=== PATIENT | female | born 1955 | race Caucasian/White ===

== ENCOUNTER 2016-10-28 19:56 | Emergency (ER) | payer MEDICAID ==
--- NOTE | 2016-10-28 20:20 | EDPHY ---
H & P Time Seen by Provider: 10/28/16 20:19 HPI/ROS: Chief complaint. Left-sided numbness HPI. 60-year-old female presents with 3 week history of left arm, left leg, left face numbness. Chronic back pain. Recent the the MRI of her neck that apparently showed DJD in surgery was not recommended. She also feels that she has weakness. She has vertigo and tinnitus. No chest discomfort, shortness of breath, abdominal pain ROS Constitutional. no fever/chills, no weakness Eyes. no problems with vision ENT. no sore throat, no nasal drainage Cardiovascular. no chest pain Respiratory. no shortness of breath, no cough Abdominal. no abdominal pain, no nausea/vomiting, no diarrhea . no problems urinating MS. Chronic back pain Skin. no rash Lymph. no swollen glands Neuro. Numbness to left side Past Medical/Surgical History: Past medical history significant thyroid disease, degenerative disc disease, vertigo, essential tremor, hypertension, depression Social History: Single, daily smoker, no alcohol Smoking Status: Light smoker Physical Exam: General Appearance: Alert well-developed female mild distress vital signs are stable Eyes: Pupils equal and round no pallor or injection. ENT, Mouth: Mucous membranes are moist. Respiratory: There are no retractions, lungs are clear to auscultation. Cardiovascular: Regular rate and rhythm. Gastrointestinal: Abdomen is soft and nontender, no masses, bowel sounds normal. Neurological: Awake and alert, sensory and motor exams grossly normal. Speech is normal. Cranial nerves normal. There is no pronator drift. Elibgw-vr-[id number] is normal ofov-ww-[id number] is normal. Great toe strength is normal. However patient feels altered sensation to the left side and left face Skin: Warm and dry, no rashes. Musculoskeletal: Neck is supple nontender. Extremities symmetrical, full range of motion. Psychiatric: Patient is oriented X 3, there is no agitation. Constitutional: Initial Vital Signs Temperature (C) 36.4 C 10/28/16 19:58 Heart Rate 102 H 10/28/16 19:58 Respiratory Rate 16 10/28/16 19:58 Blood Pressure 130/76 H 10/28/16 19:58 O2 Sat (%) 96 10/28/16 19:58 O2 Delivery Mode Room Air Allergies/Adverse Reactions: Sulfa (Sulfonamide Antibiotics) Allergy (Intermediate, Verified 05/28/16 19:55) Hives Home Medications: Medication Instructions Recorded Propranolol HCl 10/08/14 CYCLOBENZAPRINE HCL [Flexeril] 5 mg PO TID 05/28/16 Valium 10 MG (*) 05/28/16 Medical Decision Making - Diagnostics Imaging: MRI of the head without and with contrast reviewed by me and discussed with Dr. Brady is felt to be normal Procedures: IV normal saline ED Course/Re-evaluation: Re-evaluation 10:45 p.m.--patient is stable. The patient and I discussed lab and imaging results. We discussed treatment plan including criteria for return importance of follow-up further evaluation. She expresses understanding and agreement Differential Diagnosis: No explanation for the patient's left-sided paresthesias for 3 weeks. I considered CVA, brain tumor. It involves her face so I do not think this is explained by a cervical radiculopathy - Data Points Laboratory Results: Laboratory Results 10/28/16 20:55 10/28/16 20:55 10/28/16 10/28/16 20:55 20:55 WBC 9.76 10^3/uL H 10^3/uL (3.80-9.50) RBC 4.50 10^6/uL 10^6/uL (4.18-5.33) Hgb 14.2 g/dL g/dL (12.6-16.3) Hct 40.5 % % (38.0-47.0) MCV 90.0 fL fL (81.5-99.8) MCH 31.6 pg pg (27.9-34.1) MCHC 35.1 g/dL g/dL (32.4-36.7) RDW 11.7 % % (11.5-15.2) Plt Count 285 10^3/uL 10^3/uL (150-400) MPV 10.4 fL fL (8.7-11.7) Neut % (Auto) 51.5 % % (39.3-74.2) Lymph % (Auto) 38.1 % % (15.0-45.0) [place] % (Auto) 6.4 % % (4.5-13.0) Eos % (Auto) 2.9 % % (0.6-7.6) Baso % (Auto) 0.8 % % (0.3-1.7) Nucleat RBC Rel Count 0.0 % % (0.0-0.2) Absolute Neuts (auto) 5.03 10^3/uL 10^3/uL (1.70-6.50) Absolute Lymphs (auto) 3.72 10^3/uL H 10^3/uL (1.00-3.00) Absolute Monos (auto) 0.62 10^3/uL 10^3/uL (0.30-0.80) Absolute Eos (auto) 0.28 10^3/uL 10^3/uL (0.03-0.40) Absolute Basos (auto) 0.08 10^3/uL 10^3/uL (0.02-0.10) Absolute Nucleated RBC 0.00 10^3/uL 10^3/uL (0-0.01) Immature Gran % 0.3 % % (0.0-1.1) Immature Gran # 0.03 10^3/uL 10^3/uL (0.00-0.10) Sodium 138 mEq/L mEq/L (134-144) Potassium 3.8 mEq/L mEq/L (3.5-5.2) Chloride 104 mEq/L mEq/L (97-110) Carbon Dioxide 22 mEq/l mEq/l (22-31) Anion Gap 12 mEq/L mEq/L (8-16) BUN 29 mg/dL H mg/dL (7-23) Creatinine 0.6 mg/dL mg/dL (0.6-1.0) Estimated GFR > 60 Glucose 91 mg/dL mg/dL (70-100) Calcium 10.0 mg/dL mg/dL (8.5-10.4) Troponin I < 0.012 ng/mL ng/mL (0-0.034) Medications Given: Discontinued Medications Sodium Chloride (Ns) 1,000 mls @ 0 mls/hr IV ONCE ONE PRN Reason: Wide Open Stop: 10/28/16 20:44 Last Admin: 10/28/16 20:55 Dose: 1,000 mls Departure - Departure Disposition: Home, Routine, Self-Care Clinical Impression: Paresthesia Condition: Good Instructions: Paresthesia (ED) Additional Instructions: Return for worsening symptoms especially arm or leg weakness. Call Dr. Faith office tomorrow to arrange follow-up and further evaluation by Neurology Referrals: NONE *PRIMARY CARE P,. [Primary Care Provider] - As per Instructions Alli Landrum, [Medical Doctor] - 2-3 days, call for appt.
[2016-10-28] MEDS ORDERED: NS 1,000 ML IV ONE (20:43)
[2016-10-28 21:01] LABS: % IMMATURE GRANULYOCYTES 0.3 % (0.0-1.1); ABSOLUTE IMMATURE GRANULOCYTES 0.03 10^3/uL (0.00-0.10); ADD DIFF? NO; ADD MORPH? NO; ADD SCAN? NO; ATYPICAL LYMPHOCYTE FLAG 0 (0-99); FRAGMENT RBC FLAG 0 (0-99); HEMATOCRIT 40.5 % (38.0-47.0); HEMOGLOBIN 14.2 g/dL (12.6-16.3); LEFT SHIFT FLG 0 (0-99); LIPEMIA HEMOLYSIS FLAG 90 (0-99); MEAN CELL HEMOGLOBIN 31.6 pg (27.9-34.1); MEAN CELL HEMOGLOBIN CONCENTR. 35.1 g/dL (32.4-36.7); MEAN PLATELET VOLUME 10.4 fL (8.7-11.7); PLATELET CLUMPS FLAG 10 (0-99); PLATELET COUNT 285 10^3/uL (150-400); RED CELL DISTRIBUTION WIDTH 11.7 % (11.5-15.2)
--- NOTE | 2016-10-28 21:11 | CPEKG ---
Heart Rate: 79 RR Interval: 759 P-R Interval: 164 QRSD Interval: 88 QT Interval: 380 QTC Interval: 436 P Dixon: 48 QRS Dixon: 29 T Wave Dixon: 34 EKG Severity - NORMAL ECG - EKG Impression: SINUS RHYTHM Electronically Signed By: Saad Santacruz 28-Oct-2016 21:44:06
[2016-10-28 21:19] LABS: ANION GAP 12 mEq/L (8-16); CARBON DIOXIDE 22 mEq/l (22-31); CHLORIDE 104 mEq/L (97-110); CREATININE 0.6 mg/dL (0.6-1.0); GLOMERULAR FILTRATION RATE > 60; GLUCOSE 91 mg/dL (70-100); POTASSIUM 3.8 mEq/L (3.5-5.2); SODIUM 138 mEq/L (134-144)
[2016-10-28] MEDS ORDERED: GADOBUTROL 10 ML VIAL IVP ONE (21:22)
[2016-10-28 21:30] LABS: TROPONIN I < 0.012 ng/mL (0-0.034)
[2016-10-28 23:12] VITALS: BP 128/73; PULSE 85; RESP 16; TEMP 97.7; O2SAT 98
== END 2016-10-28 23:12 | disposition home or self-care (01) ==
DX: R20.2 Paresthesia of skin (principal); I10 Essential (primary) hypertension; F17.200 Nicotine dependence, unspecified, uncomplicated
CPT/HCPCS: A9585

== ENCOUNTER 2016-11-28 14:24 | Emergency (ER) | payer MEDICAID ==
[2016-11-28 14:29] VITALS: BP 102/65; PULSE 82; RESP 18; TEMP 97.5; O2SAT 95
--- NOTE | 2016-11-28 16:06 | EDPHY ---
H & P Stated Complaint: Mid abd pain w/cramping nausea today;drinking pepsi at triage Time Seen by Provider: 11/28/16 15:53 HPI/ROS: CHIEF COMPLAINT: Fatigue HISTORY OF PRESENT ILLNESS: Patient is a 60-year-old homeless female who comes to the emergency department complaining of fatigue and complete thoracic pain from her lower pelvis up to her neck and ears. She states that she has been walking and traveling too much and is tired. She has a history of chronic back pain. She states that this is bothering her. She has not had a fever cough. No vomiting or diarrhea. REVIEW OF SYSTEMS: Constitutional: See HPI denies: chills, fever, recent illness, recent injury EENTM: denies: blurred vision, double vision, nose congestion Respiratory: denies: cough, shortness of breath Cardiac: denies: chest pain, irregular heart rate, lightheadedness, palpitations Gastrointestinal/Abdominal: denies: abdominal pain, diarrhea, nausea, vomiting, blood streaked stools Genitourinary: denies: dysuria, frequency, hematuria, pain Musculoskeletal: denies: joint pain, muscle pain Skin: denies: lesions, rash, jaundice, bruising Neurological: denies: headache, numbness, paresthesia, tingling, dizziness, weakness Hematologic/Lymphatic: denies: blood clots, easy bleeding, easy bruising Immunologic/allergic: denies: HIV/AIDS, transplant EXAM: GENERAL: Well-appearing, well-nourished and in no acute distress. HEAD: Atraumatic, normocephalic. EYES: Pupils equal round and reactive to light, extraocular movements intact, sclera anicteric, conjunctiva are normal. ENT: TMs normal, nares patent, oropharynx clear without exudates. Moist mucous membranes. NECK: Normal range of motion, supple without lymphadenopathy or JVD. LUNGS: Breath sounds clear to auscultation bilaterally and equal. No wheezes rales or rhonchi. HEART: Regular rate and rhythm without murmurs, rubs or gallops. ABDOMEN: Soft, nontender, normoactive bowel sounds. No guarding, no rebound. No masses appreciated. BACK: No CVA tenderness, no spinal tenderness, step-offs or deformities EXTREMITIES: Normal range of motion, no pitting or edema. No clubbing or cyanosis. NEUROLOGICAL: Cranial nerves II through XII grossly intact. Normal speech, normal gait. 5/5 strength, normal movement in all extremities, normal sensation PSYCH: Normal mood, normal affect. SKIN: Warm, dry, normal turgor, no visible rashes or lesions. Source: Patient Exam Limitations: No limitations - Personal History Current Tetanus Diphtheria and Acellular Pertussis (TDAP): Yes Tetanus Vaccine Date: 2009 - Medical/Surgical History Hx Asthma: No Hx Chronic Respiratory Disease: No Hx Diabetes: No Hx Cardiac Disease: Yes Hx Renal Disease: No Hx Cirrhosis: No Hx Alcoholism: No Hx HIV/AIDS: No Hx Splenectomy or Spleen Trauma: No Other PMH: Thyroid disease, degenative disc disease, vertigo, , tonsillectomy, essential tremor, TMJ, Hypertension, depression - Family History Significant Family History: No pertinent family hx - Social History Smoking Status: Current every day smoker Alcohol Use: None Drug Use: None Constitutional: Initial Vital Signs Temperature (C) 36.4 C 11/28/16 14:25 Heart Rate 82 11/28/16 14:25 Respiratory Rate 18 11/28/16 14:25 Blood Pressure 102/65 11/28/16 14:25 O2 Sat (%) 95 11/28/16 14:25 O2 Delivery Mode Room Air Allergies/Adverse Reactions: Sulfa (Sulfonamide Antibiotics) Allergy (Intermediate, Verified 05/28/16 19:55) Hives Home Medications: Medication Instructions Recorded Propranolol HCl 10/08/14 CYCLOBENZAPRINE HCL [Flexeril] 5 mg PO TID 05/28/16 Valium 10 MG (*) 05/28/16 Medical Decision Making ED Course/Re-evaluation: Patient's abdominal exam and physical exam in general are completely benign. She has a tough time specifying to me exactly why she is here and what she was hoping we could evaluate. Eventually she told me that if we would give her 7 up that she thinks she would feel much better and would want to leave. She denies chest pain or shortness of breath. 4:30 p.m. the patient was able to successfully drink a can of 7 up. She is now eager to leave. She declines further workup or testing. Differential Diagnosis: Partial list of the Differential diagnosis considered include but were not limited to; fatigue, malingering, anxiety and although unlikely based on the history and physical exam, I also considered gastroenteritis, appendicitis, diverticulitis, acute coronary disease, dissection. I discussed these differential diagnoses and the plan with the patient as well as the usual and expected course. The patient understands that the diagnosis is provisional and that in medicine we are not always correct and that further workup is often warranted. Usual and customary warnings were given. All of the patient's questions were answered. The patient was instructed to return to the emergency department should the symptoms at all worsen or return, otherwise to followup with the physician as we discussed. Departure - Departure Disposition: Home, Routine, Self-Care Clinical Impression: Fatigue Qualifiers: Fatigue type: unspecified Qualified Code(s): R53.83 - Other fatigue Condition: Fair Instructions: Fatigue (ED) Referrals: NONE *PRIMARY CARE P,. [Primary Care Provider] - As per Instructions [facility],. [Clinic] - As per Instructions
--- NOTE | 2016-11-29 23:22 | EDPHY ---
H & P Time Seen by Provider: 11/28/16 15:53 HPI/ROS: This patient complains nausea associated with vertiginous symptoms that she describes as spinning sensation when she moves her head. She also reports some chronic neck pain and chronic back pain. She notes some occasional crepitance in her neck when she moves her head. Finally, she reports some lower belly discomfort of mild to moderate intensity. She admits associated constipation with no bowel movement over the past 4 5 days. She has chronic lumbar pain well with no recent changes. ROS: No fevers or chills. Reports mild fatigue but no other constitutional symptoms HEENT: No URI symptoms recently except for coryza that she attributes to seasonal allergies. Pulmonary: No shortness of breath. No cough. Cardiovascular: No chest pain. GI: No upper belly pain. No vomiting. : No urinary symptoms. Neuro: No focal numbness tingling weakness. No bowel or bladder incontinence. 10 point ROS is otherwise negative. Past Medical/Surgical History: Chronic low back pain with degenerative disc disease that she reports is cause of her disability. Social History: Patient is homeless Smoking Status: Current every day smoker Physical Exam: General Appearance: Alert, no distress. Eyes: Pupils equal and round no pallor or injection. ENT, Mouth: Mucous membranes moist. Ears: External canals and TMs are clear bilaterally. Nose: Clear discharge bilaterally. Atraumatic Respiratory: There are no retractions, lungs are clear to auscultation. Cardiovascular: Regular rate and rhythm. No murmur gallop rub. Gastrointestinal: Normoactive, soft, mild suprapubic tenderness with no guarding or rebound. No organomegaly. Back: No CVA tenderness. She has mild lumbar paraspinous tenderness bilaterally. Neurological: GCS 15. No focal sensory motor deficits except for slightly weak Achilles reflex on the left. Patient admits that she thinks this is likely chronic due to her longstanding back problems. With head movement she has mild increase in vertigo. Cerebellar exam is normal as judged by Rapid hand movements are symmetric bilaterally. No pronator drift. No lateral nystagmus Skin: Warm and dry, no rashes. Musculoskeletal: No midline tenderness. She has mild paraspinous tenderness in the neck bilaterally but has a supple neck. Extremities are symmetrical, full range of motion. Psychiatric: Mood and affect are normal DIFFERENTIAL DIAGNOSIS: After history and physical exam differential diagnosis was considered for constipation, UTI, chronic back pain, vertigo-benign positional Constitutional: Initial Vital Signs Temperature (C) 36.4 C 11/28/16 14:25 Heart Rate 82 11/28/16 14:25 Respiratory Rate 18 11/28/16 14:25 Blood Pressure 102/65 11/28/16 14:25 O2 Sat (%) 95 11/28/16 14:25 O2 Delivery Mode Room Air Allergies/Adverse Reactions: Sulfa (Sulfonamide Antibiotics) Allergy (Intermediate, Verified 05/28/16 19:55) Hives Home Medications: Medication Instructions Recorded Propranolol HCl 10/08/14 CYCLOBENZAPRINE HCL [Flexeril] 5 mg PO TID 05/28/16 Valium 10 MG (*) 05/28/16 Docusate Sodium [Colace 100 MG (*)] 100 mg PO BID PRN #20 cap 11/29/16 Meclizine HCl [Meclizine HCl 25 mg 25 mg PO TID PRN #20 tab 11/29/16 (RX,OTC)] MDM/Departure - [facility] ED Course/Re-evaluation: Urinalysis reveals no pyuria or bacteria. Discussion: Patient has findings consistent with a mild benign positional vertigo without evidence of central vertigo. I suspect that her lower belly discomfort attributable to constipation. I counseled regarding this. She has chronic neck and back pain with no recent changes. Evidence of cauda equina. Course: Meclizine with some improvement her vertigo. I counseled regarding stool softener for constipation. She has a benign exam in terms of not have an acute abdomen, no findings that would suggest a central vertigo or other concerning findings. - Depart Disposition: Home, Routine, Self-Care Clinical Impression: Fatigue Condition: Fair Instructions: Fatigue (ED), Benign Paroxysmal Positional Vertigo (ED) Additional Instructions: Diagnoses: 1. Benign positional vertigo 2. Constipation Plan: Drink plenty fluids Fleets enema Colace Meclizine for vertiginous symptoms Follow up with orthopedics for any ongoing back pains. Referrals: NONE *PRIMARY CARE P,. [Primary Care Provider] - As per Instructions [facility],. [Clinic] - As per Instructions
== END 2016-11-28 16:15 | disposition home or self-care (01) ==
DX: R53.83 Other fatigue (principal); I10 Essential (primary) hypertension; F17.200 Nicotine dependence, unspecified, uncomplicated

== ENCOUNTER 2016-11-29 20:35 | Emergency (ER) | payer MEDICAID ==
[2016-11-29 21:03] VITALS: RESP 16; TEMP 98.2
[2016-11-29] MEDS ORDERED: MECLIZINE HCL 25 MG TAB PO ONE (21:21)
[2016-11-29 21:30] LABS: COLOR YELLOW; LEUKOCYTE ESTERASE,URINE NEGATIVE (NEGATIVE); NITRITE,URINE NEGATIVE (NEGATIVE); PH,URINE 5.5 (5.0-7.5)
[2016-11-29 21:43] LABS: HYALINE CASTS OCCASIONAL /lpf (0-1); MUCUS 2+ /lpf (NONE-1+); RBC,URINE OCCASIONAL /hpf (0-3); WBC,URINE 0-1 /hpf (0-3)
--- NOTE | 2016-11-29 21:51 | EDPHY ---
H & P Time Seen by Provider: 11/29/16 21:11 HPI/ROS: My initial dictation this patient was evidently not saved. This patient presented with multiple vague complaints. The most prominent seem to be dizziness described over the previous 2 weeks. She describes the vertiginous symptoms as worsening with head movement. She also has some lower belly discomfort that comes in waves. She reports associated constipation with last bowel movement 2 days prior to arrival-firm stool. She notes no other exacerbating or alleviating factors. ROS: No high fevers or chills. No other constitutional symptoms. HEENT: No URI symptoms except for coryza that is mild. Pulmonary: No cough Cardiovascular: No heart palpitations lightheadedness GI: No vomiting. No dark tarry stools or bloody stools. : No urinary symptoms. Neuro: No focal numbness tingling weakness Musculoskeletal: She has chronic neck pain with no recent changes. 10 point ROS is otherwise negative Past Medical/Surgical History: Chronic neck pain Chronic back pain with degenerative disc disease Hypertension Smoking Status: Current every day smoker Physical Exam: General Appearance: Alert, no distress. Eyes: Pupils equal and round no pallor or injection. ENT, Mouth: Mucous membranes moist. Respiratory: There are no retractions, lungs are clear to auscultation. Cardiovascular: Regular rate and rhythm. Gastrointestinal: Normoactive, soft, mild suprapubic tenderness with no guarding or rebound. Neurological: GCS 15. She maintains normal cerebellar exam is evidenced by symmetric rapid hand movements bilaterally. She does have increased vertigo with head movement. She has no focal sensory or motor deficits I can appreciate except for slightly weak Achilles DTR on the left the patient thinks is chronic in attributable to her low back pain/discogenic disease. Skin: Warm and dry, no rashes. Musculoskeletal: Neck is supple Extremities are symmetrical, full range of motion. Psychiatric: Mood and affect normal DIFFERENTIAL DIAGNOSIS: After history and physical exam differential diagnosis was considered for constipation, peripheral vertigo, UTI, Constitutional: Initial Vital Signs Temperature (C) 36.8 C 11/29/16 21:01 Heart Rate 80 11/29/16 21:01 Respiratory Rate 16 11/29/16 21:01 Blood Pressure 115/78 11/29/16 21:01 O2 Sat (%) 97 11/29/16 21:01 O2 Delivery Mode Room Air Allergies/Adverse Reactions: Sulfa (Sulfonamide Antibiotics) Allergy (Intermediate, Verified 11/30/16 05:47) Hives Home Medications: Medication Instructions Recorded Propranolol HCl 10/08/14 CYCLOBENZAPRINE HCL [Flexeril] 5 mg PO TID 05/28/16 Valium 10 MG (*) 05/28/16 Docusate Sodium [Colace 100 MG (*)] 100 mg PO BID PRN #20 cap 11/29/16 Meclizine HCl [Meclizine HCl 25 mg 25 mg PO TID PRN #20 tab 11/29/16 (RX,OTC)] morphINE SR 15 mg BID 12/01/16 MDM/Departure - MDM Diagnostics: Urinalysis rules out UTI with only minimal microscopic hematuria otherwise negative. Medications Given: Discontinued Medications Meclizine HCl (Meclizine Hcl) 25 mg PO EDNOW ONE Stop: 11/29/16 21:22 Last Admin: 11/29/16 21:31 Dose: 25 mg ED Course/Re-evaluation: Counseled this patient regarding benign positional vertigo, constipation and chronic neck/back pain. Clinically, she does not have a surgical abdomen or concerning findings. She has normal vital signs and appears well at this time. No evidence of central vertigo. - Depart Disposition: Home, Routine, Self-Care Clinical Impression: Benign positional vertigo Qualifiers: Laterality: unspecified laterality Qualified Code(s): H81.10 - Benign paroxysmal vertigo, unspecified ear Constipation Qualifiers: Constipation type: unspecified constipation type Qualified Code(s): K59.00 - Constipation, unspecified Chronic low back pain Qualifiers: Back pain laterality: unspecified Sciatica presence: without sciatica Qualified Code(s): M54.5 - Low back pain; G89.29 - Other chronic pain Condition: Good Instructions: Benign Paroxysmal Positional Vertigo (ED) Additional Instructions: Diagnoses: 1. Benign positional vertigo 2. Constipation 3. Chronic low back pain Your urinalysis shows no infection tonight. Plan: Meclizine for spinning sensation until symptoms improve Colace stool softener for constipation Consider a Fleet's enema Ibuprofen for low back pain as needed Follow up with Dr. Ashley-information systems specialist for any worsening of back pain Return for any significant worsening despite the treatment plan. Prescriptions: Docusate Sodium [Colace 100 MG (*)] 100 mg PO BID PRN #20 cap PRN Reason: Constipation Meclizine HCl [Meclizine HCl 25 mg (RX,OTC)] 25 mg PO TID PRN #20 tab PRN Reason: vertigo Referrals: NONE *PRIMARY CARE P,. [Primary Care Provider] - As per Instructions Marquise Ashley MD [Medical Doctor] - As per Instructions
[2016-11-29 22:03] VITALS: BP 100/63; PULSE 76; O2SAT 95
== END 2016-11-29 21:55 | disposition home or self-care (01) ==
LOC: CED 20:35
DX: H81.10 Benign paroxysmal vertigo, unspecified ear (principal); K59.00 Constipation, unspecified; M54.5 Low back pain; G89.29 Other chronic pain; F17.200 Nicotine dependence, unspecified, uncomplicated; I10 Essential (primary) hypertension
CPT/HCPCS: 81003-PO; 81015-PO

== ENCOUNTER 2016-11-30 05:44 | Emergency (ER) | payer MEDICAID ==
[2016-11-30 05:49] VITALS: RESP 16; TEMP 97.3; O2SAT 97
--- NOTE | 2016-11-30 05:53 | EDPHY ---
H & P Stated Complaint: joint pain, nausea HPI/ROS: HPI CHIEF COMPLAINT: Joint pain, pain all over, nausea HISTORY OF PRESENT ILLNESS: This patient very pleasant 60-year-old female she presents emergency room as she left the homeless intermediate this evening and walked here. She tells me that she has extensive arthritis throughout her entire body including ankles feet knees hips neck and back. She tells me typically she takes Vicodin to control her pain. She states that for the past few days she has had worsening arthritic pain and chronic pain of her back and neck. She denies any trauma. She denies shortness of breath or chest pain. Denies headache or dizziness. She states she decided come to the emergency room after leaving the homeless intermediate as she thinks her arthritis is flaring up. She tells me that she has been walking extensively over the past few days and that her feet ankle knees have been hurting her. Of note I did review her recent urgent care visit as well as a emergency room visit. She was seen on 11/28 in the emergency room, also seen in the urgent care on 11/29 for dizziness. Currently denies dizziness at this time. When I asked her how I can help her in the emergency room she tells me that she would like an anti-inflammatory pain pill as well as a nausea pill. Past Medical History: Chronic back pain, degenerative joint disease, arthritis Past Surgical History: Social History: Homeless Family History: Noncontributory ROS REVIEW OF SYSTEMS: A comprehensive 10 point review of systems is otherwise negative aside from elements mentioned in the history of present illness. Exam Constitutional appears well nontoxic. triage nursing summary reviewed, vital signs reviewed, awake/alert. Eyes normal conjunctivae and sclera, EOMI, PERRLA. HENT normal inspection, atraumatic, moist mucus membranes, no epistaxis, neck supple/ no meningismus, no raccoon eyes. Respiratory clear to auscultation bilaterally, normal breath sounds, no respiratory distress, no wheezing. Cardiovascular rate normal, regular rhythm, no murmur, no edema, distal pulses normal. Gastrointestinal soft, non-tender, no rebound, no guarding, normal bowel sounds, no distension, no pulsatile mass. Genitourinary no CVA tenderness. Musculoskeletal joint exam do not appreciate any significant swelling or erythema to any of her joints, no midline vertebral tenderness, full range of motion, no calf swelling, no tenderness of extremities, no meningismus, good pulses, neurovascularly intact. Skin pink, warm, & dry, no rash, skin atraumatic. Neurologic normal neurological exam awake, alert and oriented x 3, AAOx3, moves all 4 extremities equally, motor intact, sensory intact, CN II-XII intact , normal cerebellar, normal vision, normal speech. Psychiatric normal mood/affect. Heme/Lymph/Immune no lymphadenopathy. Differential Diagnosis: Includes but is not limited to in a particular order arthritis, degenerative joint disease, chronic neck pain, chronic back pain Medical Decision Making: Plan for this patient ibuprofen 600 mg has been ordered as well as 4 mg p.o. Zofran. See if this helps with her pain and nausea. This time her main complaint is pain of multiple joints. Denies fever , chest pain, dizziness, shortness of breath, headache. Tells me her pain in her neck and back or chronic. Will re-evaluate shortly after ibuprofen and Zofran. Re-evaluation: 07: Re-examination at this time patient is resting comfortably. She tells me she feels much better. I did have to wake her from sleeping. She denies chest pain, shortness of breath, dizziness. She feels much better. Agreeable on discharge planning. I do recommend she follows up with [facility]. She does understand return emergency room if she has any worsening symptoms includes chest pain, shortness of breath, dizziness. Source: Patient - Personal History Tetanus Vaccine Date: 2009 - Medical/Surgical History Hx Asthma: No Hx Chronic Respiratory Disease: No Hx Diabetes: No Hx Cardiac Disease: Yes Hx Renal Disease: No Hx Cirrhosis: No Hx Alcoholism: No Hx HIV/AIDS: No Hx Splenectomy or Spleen Trauma: No Other PMH: Thyroid disease, degenative disc disease, vertigo, , tonsillectomy, essential tremor, TMJ, Hypertension, depression - Social History Smoking Status: Current every day smoker Constitutional: Initial Vital Signs Temperature (C) 36.3 C 11/30/16 05:47 Heart Rate 80 11/30/16 05:47 Respiratory Rate 16 11/30/16 05:47 Blood Pressure 104/64 11/30/16 05:47 O2 Sat (%) 97 11/30/16 05:47 O2 Delivery Mode Room Air Allergies/Adverse Reactions: Sulfa (Sulfonamide Antibiotics) Allergy (Intermediate, Verified 11/30/16 05:47) Hives Home Medications: Medication Instructions Recorded Propranolol HCl 10/08/14 CYCLOBENZAPRINE HCL [Flexeril] 5 mg PO TID 05/28/16 Valium 10 MG (*) 05/28/16 Docusate Sodium [Colace 100 MG (*)] 100 mg PO BID PRN #20 cap 11/29/16 Meclizine HCl [Meclizine HCl 25 mg 25 mg PO TID PRN #20 tab 11/29/16 (RX,OTC)] Medical Decision Making - Data Points Medications Given: Discontinued Medications Ibuprofen (Motrin) 600 mg PO EDNOW ONE Stop: 11/30/16 06:03 Last Admin: 11/30/16 06:10 Dose: 600 mg Meclizine HCl (Meclizine Hcl) 25 mg PO EDNOW ONE Stop: 11/30/16 06:37 Last Admin: 11/30/16 06:41 Dose: 25 mg Ondansetron HCl (Zofran Odt) 4 mg PO EDNOW ONE Stop: 11/30/16 06:03 Last Admin: 11/30/16 06:10 Dose: 4 mg Departure - Departure Disposition: Home, Routine, Self-Care Clinical Impression: Arthritis Condition: Good Instructions: Arthritis (ED) Additional Instructions: 1. Drink plenty of fluids. Stay well-hydrated. 2. Minimize best you can extensive walking or high impact activities at this time. 3. Please follow up with your primary care doctor 4. Return emergency room if you have any worsening symptoms questions or concerns. Referrals: [facility] [Other] - As per Instructions
[2016-11-30] MEDS ORDERED: IBUPROFEN 600 MG TAB PO ONE ×2 (06:02→06:03)
[2016-11-30] MEDS ORDERED: ONDANSETRON DISINTEGRATING 4 MG TAB PO ONE (06:02)
[2016-11-30] MEDS ORDERED: ONDANSETRON DISINTEGRATING 4 MG TAB ONE (06:03)
[2016-11-30] MEDS ORDERED: MECLIZINE HCL 25 MG TAB ONE (06:35)
[2016-11-30] MEDS ORDERED: MECLIZINE HCL 25 MG TAB PO ONE (06:36)
[2016-11-30 07:20] VITALS: BP 93/66; PULSE 68
== END 2016-11-30 07:22 | disposition home or self-care (01) ==
DX: M19.90 Unspecified osteoarthritis, unspecified site (principal); F17.200 Nicotine dependence, unspecified, uncomplicated; I10 Essential (primary) hypertension

== ENCOUNTER 2016-12-01 01:56 | Emergency (ER) | payer MEDICAID ==
[2016-12-01 02:04] VITALS: BP 112/73; PULSE 92; RESP 16; TEMP 98.1; O2SAT 96
--- NOTE | 2016-12-01 02:46 | EDPHY ---
H & P Stated Complaint: continued malaise, N, dry mouth, BELLA; thinks maybe Morphine rxn Time Seen by Provider: 12/01/16 02:21 HPI/ROS: Chief Complaint: Body aches, dizzy, nausea HPI: 60-year-old homeless woman who is presenting to the emergency department for the 4th time in 4 days. She is complaining of current exacerbation of her chronic pain all over. Patient states she has been up and doing a lot of walking. Patient has also had some nausea with some dizziness. She was seen earlier in the week for this and was given meclizine but has not been taking this. She has not been taking any pain medicine since 5 yesterday morning which she was given ibuprofen here. She did state that helped. She has not called followed up with outpatient care. She states her pain is been getting worse since she was on morphine by [facility]. She did not like how they made her feel so she stopped taking it. Denies any new numbness or weakness. No chest pain or shortness of breath. No palpitations. No fevers or chills. No urinary symptoms. When I asked her however might help her she asked me to come up with a miracle and foot find out a way to care for her. ROS: 10 point Review of Systems is negative except as noted in the HPI. PMH: Chronic pain, degenerative joint disease, arthritis, Social History: Homeless Family History: non-contributory Physical Exam: Gen: Awake, Alert, No Distress HEENT: Nose: no rhinorrhea Eyes: PERRLA, EOMI Mouth: Moist mucosa Neck: Supple, no JVD Chest: nontender, lungs clear to auscultation Heart: S1, S2 normal, no murmur Abd: Soft, non-tender, no guarding Back: no CVA tenderness, no midline tenderness Ext: no edema, non-tender Skin: no rash Neuro: CN II-XII intact, Sensation grossly intact, Strength 5/5 in bilateral upper and lower extremities - Personal History Current Tetanus/Diphtheria Vaccine: Yes Current Tetanus Diphtheria and Acellular Pertussis (TDAP): Yes Tetanus Vaccine Date: 2009 - Medical/Surgical History Hx Asthma: No Hx Chronic Respiratory Disease: No Hx Diabetes: No Hx Cardiac Disease: Yes Hx Renal Disease: No Hx Cirrhosis: No Hx Alcoholism: No Hx HIV/AIDS: No Hx Splenectomy or Spleen Trauma: No Other PMH: Thyroid disease, degenative disc disease, vertigo, , tonsillectomy, essential tremor, TMJ, Hypertension, depression, chronic sinusitis - Social History Smoking Status: Light smoker Constitutional: Initial Vital Signs Temperature (C) 36.7 C 12/01/16 02:00 Heart Rate 92 12/01/16 02:00 Respiratory Rate 16 12/01/16 02:00 Blood Pressure 112/73 12/01/16 02:00 O2 Sat (%) 96 12/01/16 02:00 O2 Delivery Mode Room Air Allergies/Adverse Reactions: Sulfa (Sulfonamide Antibiotics) Allergy (Intermediate, Verified 11/30/16 05:47) Hives Home Medications: Medication Instructions Recorded Propranolol HCl 10/08/14 CYCLOBENZAPRINE HCL [Flexeril] 5 mg PO TID 05/28/16 Valium 10 MG (*) 05/28/16 Docusate Sodium [Colace 100 MG (*)] 100 mg PO BID PRN #20 cap 11/29/16 Meclizine HCl [Meclizine HCl 25 mg 25 mg PO TID PRN #20 tab 11/29/16 (RX,OTC)] morphINE SR 15 mg BID 12/01/16 Medical Decision Making ED Course/Re-evaluation: 60-year-old homeless woman presenting for her 4th day in a row with very generalized complaints of pain and dizziness. She is ambulating without assistance or difficulty. Has not had any nausea vomiting emergency department. She has not been taking her medications as prescribed she has not followed up as an outpatient as suggested. Do not see any evidence of acute medical emergent process. I have once again referred her to follow up at the [facility] for further evaluation. I have given her ibuprofen here in instructions to continue taking this [id number]. Departure - Departure Disposition: Home, Routine, Self-Care Clinical Impression: Arthritis, Chronic pain Condition: Fair Instructions: Arthritis (ED), Chronic Back Pain (ED) Additional Instructions: Follow up with the [facility] for further evaluation of your chronic pain and dizziness. Referrals: Aida Mckinney PA [Primary Care Provider] - As per Instructions
[2016-12-01] MEDS ORDERED: IBUPROFEN 200 MG TAB PO ONE (02:49)
== END 2016-12-01 02:58 | disposition home or self-care (01) ==
DX: M19.90 Unspecified osteoarthritis, unspecified site (principal); I10 Essential (primary) hypertension; F17.200 Nicotine dependence, unspecified, uncomplicated; R52 Pain, unspecified

== ENCOUNTER 2016-12-04 22:31 | Emergency (ER) | payer MEDICAID ==
[2016-12-04 22:50] VITALS: BP 110/75; PULSE 96; RESP 16; O2SAT 98
--- NOTE | 2016-12-04 23:01 | EDPHY ---
H & P Stated Complaint: multiple vague c/o (mole behind ear, bunion, neck pain), not sleeping Time Seen by Provider: 12/04/16 22:56 HPI/ROS: HPI The patient presents with multiple complaints. She says that she has a mole behind her left ear that seems to be growing in size. She has a bunion on her left foot that is bothering her. She also has occasional ringing in her ears and neck pain. All the symptoms have been going on for the last several weeks and do not seem to be worsening.. She has been to the emergency room for multiple complaints 5 times in the last 10 days. She normally resides at the homeless [facility] care, however has been sleeping at a hotel for the last few nights. It seems like she may not have a place to stay. REVIEW OF SYSTEMS Constitutional: No fever, no chills. Eyes: No discharge. ENT: No sore throat. Cardiovascular: No chest pain, no palpitations. Respiratory: No cough, no shortness of breath. Gastrointestinal: No abdominal pain, no vomiting. Genitourinary: No hematuria. Musculoskeletal: No back pain. Skin: No rashes. Neurological: No headache. Soc Hx: Homeless PHYSICAL General Appearance: Alert, no distress Eyes: Pupils equal and round no pallor or injection ENT, Mouth: Mucous membranes moist Respiratory: There are no retractions, lungs are clear to auscultation Cardiovascular: Regular rate and rhythm Gastrointestinal: Abdomen is soft and non-tender, no masses, bowel sounds normal Neurological: A&O, moves all extremities Skin: Warm and dry, left temporal region with 1 cm raised erythematous lesion Musculoskeletal: Neck is supple non tender Extremities: symmetrical, full range of motion, right foot has bunion with mild erythema, no edema, warmth, tenderness Psychiatric: Patient is oriented X 3, there is no agitation Source: Patient Exam Limitations: No limitations - Personal History Current Tetanus/Diphtheria Vaccine: Yes Current Tetanus Diphtheria and Acellular Pertussis (TDAP): Yes Tetanus Vaccine Date: 2009 - Medical/Surgical History Hx Asthma: No Hx Chronic Respiratory Disease: No Hx Diabetes: No Hx Cardiac Disease: Yes Hx Renal Disease: No Hx Cirrhosis: No Hx Alcoholism: No Hx HIV/AIDS: No Hx Splenectomy or Spleen Trauma: No Other PMH: Thyroid disease, degenative disc disease, vertigo, , tonsillectomy, essential tremor, TMJ, Hypertension, depression, chronic sinusitis - Social History Smoking Status: Light smoker Constitutional: Initial Vital Signs Heart Rate 96 12/04/16 22:47 Respiratory Rate 16 12/04/16 22:47 Blood Pressure 110/75 12/04/16 22:47 O2 Sat (%) 98 12/04/16 22:47 O2 Delivery Mode Room Air Allergies/Adverse Reactions: Sulfa (Sulfonamide Antibiotics) Allergy (Intermediate, Verified 11/30/16 05:47) Hives Home Medications: Medication Instructions Recorded Propranolol HCl 10/08/14 CYCLOBENZAPRINE HCL [Flexeril] 5 mg PO TID 05/28/16 Valium 10 MG (*) 05/28/16 Docusate Sodium [Colace 100 MG (*)] 100 mg PO BID PRN #20 cap 11/29/16 Meclizine HCl [Meclizine HCl 25 mg 25 mg PO TID PRN #20 tab 11/29/16 (RX,OTC)] morphINE SR 15 mg BID 12/01/16 Medical Decision Making Differential Diagnosis: This is a 60-year-old female who presents with multiple complaints which have been present for the last several weeks, perhaps longer. She reports tinnitus, bunion, mole, neck pain. She has a normal physical exam, which does reveal a bunion of her left foot and Skin lesion in her left temporal region. I have instructed her to follow up with [facility] so that she can have Dermatology referral as needed. It seems she does not have a place to stay and this is possibly senior care seeking. I have discussed with her appropriate use of the emergency room. She will be discharged. Departure - Departure Disposition: Home, Routine, Self-Care Clinical Impression: Neck pain, Bunion of great toe of left foot, Change in mole Condition: Good Instructions: Bunion (ED) Additional Instructions: Please follow-up with the [facility] for your medical problems. Referrals: [facility] [Other] - As per Instructions
== END 2016-12-04 23:39 | disposition home or self-care (01) ==
DX: M54.2 Cervicalgia (principal); M20.12 Hallux valgus (acquired), left foot; D22.9 Melanocytic nevi, unspecified; F17.200 Nicotine dependence, unspecified, uncomplicated; I10 Essential (primary) hypertension

== ENCOUNTER 2017-01-04 23:31 | Emergency (ER) | payer MEDICAID ==
[2017-01-04 23:41] VITALS: BP 111/75; PULSE 95; TEMP 98.2; O2SAT 96
--- NOTE | 2017-01-05 00:32 | EDPHY ---
H & P Stated Complaint: dizzy, BELLA, weakness, generalized pain- chronic problem Time Seen by Provider: 01/05/17 00:20 HPI/ROS: CHIEF COMPLAINT: Multiple complaints HISTORY OF PRESENT ILLNESS: 61-year-old homeless female familiar to emergency department staff presents via walking to the emergency department with variety of complaints including: Clicking sensation in her jaw and her knees, intermittent dizziness, continued back pain, left ankle pain. None of these are acute. She states that she has had all these for several months. She is currently asymptomatic for headache. When she did last experience headache was non thunderclap. At no point has she experience neurologic deficits or gait instability or slurred speech or visual disturbance. She denies trauma. Denies urinary abnormality. Denies fever chills. Denies abdominal pain. Denies chest pain. Denies flu-like symptoms. PRIMARY CARE PROVIDER: [facility] REVIEW OF SYSTEMS: A ten point review of systems was performed and is negative with the exception of the items mentioned in the HPI PAST MEDICAL & SURGICAL HISTORY: Chronic back pain. Degenerative joint disease. Arthritis. SOCIAL HISTORY: Homeless. No drug use. PHYSICAL EXAM (Prior to examination, patient consented to physical exam, hands were washed and my usual and customary physical exam procedures followed) 1) GENERAL: Well-developed, well-nourished, alert and oriented. Appears to be in no acute distress. 2) HEAD: Normocephalic, atraumatic 3) HEENT: Pupils equal, round, reactive to light bilaterally. Sclera anicteric. 4) NECK: Full range of motion, no meningeal signs. 5) LUNGS: Clear auscultation bilaterally, no wheezes, no rhonchi, no retractions. 6) HEART: Regular rate and rhythm, no murmur, no heave, no gallop. 7) ABDOMEN: No guarding, no rebound, no focal tenderness, 8) MUSCULOSKELETAL: Moving all extremities, no focal areas of tenderness, no obvious trauma. No peripheral edema or discoloration. 9) BACK: No CVA tenderness, no midline vertebral tenderness, no fluctuance, no step-off, no obvious trauma, no visual or palpable abnormality. 10) SKIN: No rash, no petechiae. 11) Psychiatric: Patient is oriented X 3, there is no agitation. 12)NEURO: Awake, alert, and oriented to person, place and time. Answers questions appropriately. There were no obvious focal neurologic abnormalities. No cerebellar dysfunction. Cranial nerves 2 through to 12 intact. Normal steady gait. Upper and lower extremities bilaterally with strength 5 / 5, reflexes 2+. DIFFERENTIAL DIAGNOSIS: In no particular order, including but not limited to subarachnoid hemorrhage, migraine headache, tension headache and infectious causes such as meningitis, pharyngitis and sinusitis. - Personal History Current Tetanus/Diphtheria Vaccine: Yes Current Tetanus Diphtheria and Acellular Pertussis (TDAP): Yes Tetanus Vaccine Date: 2009 - Medical/Surgical History Hx Asthma: No Hx Chronic Respiratory Disease: No Hx Diabetes: No Hx Cardiac Disease: Yes Hx Renal Disease: No Hx Cirrhosis: No Hx Alcoholism: No Hx HIV/AIDS: No Hx Splenectomy or Spleen Trauma: No Other PMH: Thyroid disease, degenative disc disease, vertigo, , tonsillectomy, essential tremor, TMJ, Hypertension, depression, chronic sinusitis - Social History Smoking Status: Light smoker Constitutional: Initial Vital Signs Temperature (C) 36.8 C 01/04/17 23:37 Heart Rate 95 01/04/17 23:37 Respiratory Rate 16 01/04/17 23:37 Blood Pressure 111/75 01/04/17 23:37 O2 Sat (%) 96 01/04/17 23:37 O2 Delivery Mode Room Air Allergies/Adverse Reactions: Sulfa (Sulfonamide Antibiotics) Allergy (Intermediate, Verified 11/30/16 05:47) Hives Home Medications: Medication Instructions Recorded Propranolol HCl 10/08/14 CYCLOBENZAPRINE HCL [Flexeril] 5 mg PO TID 05/28/16 Valium 10 MG (*) 05/28/16 Docusate Sodium [Colace 100 MG (*)] 100 mg PO BID PRN #20 cap 11/29/16 Meclizine HCl [Meclizine HCl 25 mg 25 mg PO TID PRN #20 tab 11/29/16 (RX,OTC)] morphINE SR 15 mg BID 12/01/16 Medical Decision Making ED Course/Re-evaluation: Old medical records reviewed by myself including MRI dated 10/28/2016 which is negative for acute pathology. On exam she has a nonfocal neurologic examination. I do not see evidence of acute medical emergent process. I recommend she follow up at the [facility]. She is agreeable with this plan. Usual and customary discharge precautions and instructions provided Departure - Departure Disposition: Home, Routine, Self-Care Clinical Impression: Arthritis Chronic back pain Qualifiers: Back pain location: low back pain Back pain laterality: unspecified Sciatica presence: without sciatica Qualified Code(s): M54.5 - Low back pain Condition: Good Instructions: Arthritis (ED) Referrals: [facility] [Clinic] - 1-2 days without fail
[2017-01-05 00:44] VITALS: RESP 17
== END 2017-01-05 00:42 | disposition home or self-care (01) ==
DX: M19.90 Unspecified osteoarthritis, unspecified site (principal); M54.5 Low back pain; G89.29 Other chronic pain; I10 Essential (primary) hypertension; F17.200 Nicotine dependence, unspecified, uncomplicated

== ENCOUNTER 2017-02-02 09:57 | Emergency (ER) | payer MEDICAID ==
--- NOTE | 2017-02-02 10:17 | EDPHY ---
H & P Time Seen by Provider: 02/02/17 10:07 HPI/ROS: Chief complaint. abdominal pain HPI. 61-year-old female with chronic abdominal pain and pain in her abdomen for several months. However worse today. History of constipation. She describes her pain is mid abdomen and crampy. No radiation. No fever. No urinary symptoms. Nausea but no vomiting. She says she has not had a normal bowel movement in more than 3 years. No chest discomfort or trouble breathing. ROS Constitutional. no fever/chills, no weakness Eyes. no problems with vision ENT. no sore throat, no nasal drainage Cardiovascular. no chest pain Respiratory. no shortness of breath, no cough Abdominal. Abdominal pain with nausea . no problems urinating MS. no calf pain/swelling, no neck/back pain, no joint pain Skin. no rash Lymph. no swollen glands Neuro. no headache, no dizziness, no difficulty walking or with speech Past Medical/Surgical History: Past medical history significant thyroid disease, chronic back pain, vertigo, hypertension, depression Social History: Single, daily smoker, no alcohol Smoking Status: Light smoker Physical Exam: General Appearance: Alert pleasant well-developed female mild distress vital signs are stable Eyes: Pupils equal and round no pallor or injection. ENT, Mouth: Mucous membranes are moist. Respiratory: There are no retractions, lungs are clear to auscultation. Cardiovascular: Regular rate and rhythm. Gastrointestinal: Abdomen is soft with some periumbilical tenderness. No masses. Normal bowel sounds Neurological: Awake and alert, sensory and motor exams grossly normal. Skin: Warm and dry, no rashes. Musculoskeletal: Neck is supple nontender. Extremities symmetrical, full range of motion. Psychiatric: Patient is oriented X 3, there is no agitation. Constitutional: Initial Vital Signs Temperature (C) 36.9 C 02/02/17 10:02 Heart Rate 75 02/02/17 10:02 Respiratory Rate 16 02/02/17 10:02 Blood Pressure 119/73 02/02/17 10:02 O2 Sat (%) 98 02/02/17 10:02 O2 Delivery Mode Room Air Allergies/Adverse Reactions: Sulfa (Sulfonamide Antibiotics) Allergy (Intermediate, Verified 11/30/16 05:47) Hives Home Medications: Medication Instructions Recorded Propranolol HCl 10/08/14 CYCLOBENZAPRINE HCL [Flexeril] 5 mg PO TID 05/28/16 Valium 10 MG (*) 05/28/16 Docusate Sodium [Colace 100 MG (*)] 100 mg PO BID PRN #20 cap 11/29/16 Meclizine HCl [Meclizine HCl 25 mg 25 mg PO TID PRN #20 tab 11/29/16 (RX,OTC)] morphINE SR 15 mg BID 12/01/16 Medical Decision Making - Diagnostics Imaging Results: Imaging Impressions Abdomen X-Ray 02/02/17 10:28 Impression: Moderate constipation. Abdomen CT 02/02/17 10:47 Impression: Constipation. Appendolith in the appendix, but no CT findings for appendicitis. Results called and discussed with Prashant Hoyt MD on February 02, 2017 at 1128 hours. Upright abdomen shows a few scattered air-fluid levels. Moderate constipation. No evidence for free air CT abdomen and pelvis with IV contrast reviewed by me and discussed with Dr. Richards is consistent with constipation. She does have an appendicolith but no evidence for appendicitis Procedures: IV normal saline ED Course/Re-evaluation: Re-evaluation at 10:45 a.m.. Patient and I discussed lab work and x-ray findings. I recommended CT scan of her abdomen and pelvis and she expresses understanding and agreement Re-evaluation at 11:50 a.m.. Patient is stable. She and I discussed imaging and lab results. We discussed treatment plan including criteria for return importance of follow-up and further evaluation. She expresses understanding and agreement Differential Diagnosis: I considered constipation, diverticulitis, appendicitis - Data Points Laboratory Results: Laboratory Results 02/02/17 10:16 02/02/17 10:16 02/02/17 02/02/17 10:16 10:16 WBC 15.32 10^3/uL H 10^3/uL (3.80-9.50) RBC 4.92 10^6/uL 10^6/uL (4.18-5.33) Hgb 15.2 g/dL g/dL (12.6-16.3) Hct 44.3 % % (38.0-47.0) MCV 90.0 fL fL (81.5-99.8) MCH 30.9 pg pg (27.9-34.1) MCHC 34.3 g/dL g/dL (32.4-36.7) RDW 12.2 % % (11.5-15.2) Plt Count 245 10^3/uL 10^3/uL (150-400) MPV 11.4 fL fL (8.7-11.7) Neut % (Auto) 80.8 % H % (39.3-74.2) Lymph % (Auto) 11.4 % L % (15.0-45.0) [place] % (Auto) 5.2 % % (4.5-13.0) Eos % (Auto) 1.6 % % (0.6-7.6) Baso % (Auto) 0.5 % % (0.3-1.7) Nucleat RBC Rel Count 0.0 % % (0.0-0.2) Absolute Neuts (auto) 12.39 10^3/uL H 10^3/uL (1.70-6.50) Absolute Lymphs (auto) 1.74 10^3/uL 10^3/uL (1.00-3.00) Absolute Monos (auto) 0.79 10^3/uL 10^3/uL (0.30-0.80) Absolute Eos (auto) 0.24 10^3/uL 10^3/uL (0.03-0.40) Absolute Basos (auto) 0.08 10^3/uL 10^3/uL (0.02-0.10) Absolute Nucleated RBC 0.00 10^3/uL 10^3/uL (0-0.01) Immature Gran % 0.5 % % (0.0-1.1) Immature Gran # 0.08 10^3/uL 10^3/uL (0.00-0.10) Sodium 143 mEq/L mEq/L (134-144) Potassium 4.0 mEq/L mEq/L (3.5-5.2) Chloride 107 mEq/L mEq/L (97-110) Carbon Dioxide 24 mEq/l mEq/l (22-31) Anion Gap 12 mEq/L mEq/L (8-16) BUN 15 mg/dL mg/dL (7-23) Creatinine 0.7 mg/dL mg/dL (0.6-1.0) Estimated GFR > 60 Glucose 69 mg/dL L mg/dL (70-100) Calcium 9.5 mg/dL mg/dL (8.5-10.4) Medications Given: Discontinued Medications Sodium Chloride (Ns) 1,000 mls @ 0 mls/hr IV ONCE ONE; Wide Open PRN Reason: Protocol Stop: 02/02/17 10:48 Last Admin: 02/02/17 10:54 Dose: 1,000 mls Departure - Departure Disposition: Home, Routine, Self-Care Clinical Impression: Abdominal pain Qualifiers: Abdominal location: periumbilical Qualified Code(s): R10.33 - Periumbilical pain Condition: Good Instructions: Constipation (ED) Additional Instructions: Increased fluids including fruit and prune juice. Magnesium citrate, medical magnesia, para Colace for constipation. Recheck in 2 days if not improving Referrals: [facility] [Other] - 2-3 days, if not improved
[2017-02-02 10:35] LABS: % IMMATURE GRANULYOCYTES 0.5 % (0.0-1.1); ABSOLUTE IMMATURE GRANULOCYTES 0.08 10^3/uL (0.00-0.10); ADD DIFF? NO; ADD MORPH? NO; ADD SCAN? NO; ATYPICAL LYMPHOCYTE FLAG 10 (0-99); FRAGMENT RBC FLAG 0 (0-99); HEMATOCRIT 44.3 % (38.0-47.0); HEMOGLOBIN 15.2 g/dL (12.6-16.3); LEFT SHIFT FLG 10 (0-99); LIPEMIA HEMOLYSIS FLAG 90 (0-99); MEAN CELL HEMOGLOBIN 30.9 pg (27.9-34.1); MEAN CELL HEMOGLOBIN CONCENTR. 34.3 g/dL (32.4-36.7); MEAN PLATELET VOLUME 11.4 fL (8.7-11.7); PLATELET CLUMPS FLAG 0 (0-99); PLATELET COUNT 245 10^3/uL (150-400); RED BLOOD CELL COUNT 4.92 10^6/uL (4.18-5.33); RED CELL DISTRIBUTION WIDTH 12.2 % (11.5-15.2)
[2017-02-02 10:43] LABS: ANION GAP 12 mEq/L (8-16); CALCIUM 9.5 mg/dL (8.5-10.4); CARBON DIOXIDE 24 mEq/l (22-31); CHLORIDE 107 mEq/L (97-110); CREATININE 0.7 mg/dL (0.6-1.0); GLOMERULAR FILTRATION RATE > 60; GLUCOSE 69 mg/dL (70-100); SODIUM 143 mEq/L (134-144)
[2017-02-02] MEDS ORDERED: NS 1,000 ML IV ONE (10:47)
[2017-02-02] MEDS ORDERED: IOPAMIDOL (ISOVUE-300) 100 ML BTL ONE (11:02)
[2017-02-02 12:12] VITALS: BP 117/67; PULSE 81; RESP 18; TEMP 97.9; O2SAT 96
== END 2017-02-02 12:12 | disposition home or self-care (01) ==
DX: R10.33 Periumbilical pain (principal); I10 Essential (primary) hypertension; F17.200 Nicotine dependence, unspecified, uncomplicated; E86.9 Volume depletion, unspecified
CPT/HCPCS: Q9967

== ENCOUNTER 2017-05-28 14:45 | Emergency (ER) | payer MEDICAID ==
[2017-05-28] MEDS ORDERED: HYDROmorphONE/DILAUDID 1 MG/ML INJ IVP ONE (15:19)
[2017-05-28] MEDS ORDERED: NS 1,000 ML IV ONE (15:19)
[2017-05-28] MEDS ORDERED: KETOROLAC 30 MG/1 ML SDV IVP ONE (15:19)
[2017-05-28 15:49] LABS: % IMMATURE GRANULYOCYTES 0.1 % (0.0-1.1); ABSOLUTE IMMATURE GRANULOCYTES 0.01 10^3/uL (0.00-0.10); ADD DIFF? NO; ADD MORPH? NO; ADD SCAN? NO; ATYPICAL LYMPHOCYTE FLAG 0 (0-99); FRAGMENT RBC FLAG 0 (0-99); HEMATOCRIT 39.3 % (38.0-47.0); LEFT SHIFT FLG 0 (0-99); LIPEMIA HEMOLYSIS FLAG 90 (0-99); MEAN CELL HEMOGLOBIN 31.7 pg (27.9-34.1); MEAN CELL HEMOGLOBIN CONCENTR. 35.6 g/dL (32.4-36.7); MEAN CELL VOLUME 88.9 fL (81.5-99.8); MEAN PLATELET VOLUME 10.7 fL (8.7-11.7); PLATELET CLUMPS FLAG 0 (0-99); PLATELET COUNT 219 10^3/uL (150-400); RED BLOOD CELL COUNT 4.42 10^6/uL (4.18-5.33); RED CELL DISTRIBUTION WIDTH 12.4 % (11.5-15.2)
[2017-05-28 16:03] LABS: ALANINE AMINOTRANSFERASE 33 IU/L (9-52); ALBUMIN 4.3 g/dL (3.5-5.0); ALKALINE PHOSPHATASE 89 IU/L (38-126); ANION GAP 11 mEq/L (8-16); ASPARTATE AMINOTRANSFERASE 18 IU/L (14-46); BILIRUBIN,TOTAL 0.2 mg/dL (0.1-1.4); BILIRUBIN-CONJUGATED 0.2 mg/dL (0.0-0.5); CALCIUM 9.7 mg/dL (8.5-10.4); CARBON DIOXIDE 23 mEq/l (22-31); CHLORIDE 109 mEq/L (97-110); CREATININE 0.6 mg/dL (0.6-1.0); GLOMERULAR FILTRATION RATE > 60; GLUCOSE 95 mg/dL (70-100); SODIUM 143 mEq/L (134-144); TOTAL PROTEIN 6.3 g/dL (6.3-8.2)
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
[2017-05-28 17:32] VITALS: BP 132/74; PULSE 74; RESP 16; TEMP 98.4; O2SAT 96
== END 2017-05-28 17:31 | disposition home or self-care (01) ==
DX: A09 Infectious gastroenteritis and colitis, unspecified (principal); I10 Essential (primary) hypertension; F17.200 Nicotine dependence, unspecified, uncomplicated; E86.9 Volume depletion, unspecified
CPT/HCPCS: 96374; J1170; J1885

== ENCOUNTER 2017-07-09 11:16 | Emergency (ER) | payer MEDICAID ==
[2017-07-09 11:21] VITALS: BP 133/77; PULSE 64; RESP 16; TEMP 97.5; O2SAT 98
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
== END 2017-07-09 12:59 | disposition home or self-care (01) ==
DX: F41.9 Anxiety disorder, unspecified (principal); F17.200 Nicotine dependence, unspecified, uncomplicated; I10 Essential (primary) hypertension

== ENCOUNTER 2017-07-21 12:17 | Emergency (ER) | payer MEDICAID ==
[2017-07-21 12:23] VITALS: TEMP 97.7
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
[2017-07-21 13:27] VITALS: BP 140/78; PULSE 65; RESP 16; O2SAT 98
== END 2017-07-21 13:26 | disposition home or self-care (01) ==
DX: M54.5 Low back pain (principal); G89.29 Other chronic pain; F17.200 Nicotine dependence, unspecified, uncomplicated

== ENCOUNTER 2017-09-08 11:15 | Emergency (ER) | payer MEDICAID ==
[2017-09-08 11:22] VITALS: O2SAT 98
--- NOTE | 2017-09-08 12:32 | CPEKG ---
Heart Rate: 57 RR Interval: 1053 P-R Interval: 144 QRSD Interval: 86 QT Interval: 404 QTC Interval: 394 P Heron: -5 QRS Heron: 22 T Wave Heron: 50 EKG Severity - NORMAL ECG - EKG Impression: SINUS RHYTHM Electronically Signed By: Saad Santacruz 08-Sep-2017 15:07:30
--- NOTE | 2017-09-08 13:15 | EDPHY ---
H & P Time Seen by Provider: 09/08/17 13:02 HPI/ROS: A Chief complaint. Chest pain HPI. 61-year-old female presents emergency department with an episode of chest pain that occurred 3 days ago. She was here carrying heavy bags and then got on the bus and sat down. She had a sudden onset of squeezing and sharp left anterior chest discomfort. It lasted 1 and 0.5 sec. There was no radiation. She has not had similar symptoms since. No shortness of breath. No fever cough. No unusual leg pain or swelling. No similar symptoms previously ROS Constitutional. no fever/chills, no weakness Eyes. no problems with vision ENT. no sore throat, no nasal drainage Cardiovascular. Chest pain Respiratory. no shortness of breath, no cough Abdominal. no abdominal pain, no nausea/vomiting, no diarrhea . no problems urinating MS. no calf pain/swelling, no neck/back pain, no joint pain Skin. no rash Lymph. no swollen glands Neuro. no headache, no dizziness, no difficulty walking or with speech Past Medical/Surgical History: Family history negative for early coronary artery disease Hypothyroid, degenerative disc disease, vertigo, hypertension, depression Social History: Single, daily smoker, no alcohol Smoking Status: Current every day smoker Physical Exam: General Appearance: Alert well-developed female mild distress vital signs are stable Eyes: Pupils equal and round no pallor or injection. ENT, Mouth: Mucous membranes are moist. Respiratory: There are no retractions, lungs are clear to auscultation. Cardiovascular: Regular rate and rhythm. Gastrointestinal: Abdomen is soft and nontender, no masses, bowel sounds normal. Neurological: Awake and alert, sensory and motor exams grossly normal. Skin: Warm and dry, no rashes. Musculoskeletal: Neck is supple nontender. Extremities symmetrical, full range of motion. Psychiatric: Patient is oriented X 3, there is no agitation. Constitutional: Initial Vital Signs Temperature (C) 37.0 C 09/08/17 11:19 Heart Rate 76 09/08/17 11:19 Respiratory Rate 16 09/08/17 11:19 Blood Pressure 120/85 H 09/08/17 11:19 O2 Sat (%) 98 09/08/17 11:19 O2 Delivery Mode Room Air Allergies/Adverse Reactions: Sulfa (Sulfonamide Antibiotics) Allergy (Intermediate, Verified 07/21/17 12:19) Hives Home Medications: Medication Instructions Recorded Propranolol HCl 10/08/14 CYCLOBENZAPRINE HCL [Flexeril] 5 mg PO TID 05/28/16 Valium 10 MG (*) 05/28/16 Docusate Sodium [Colace 100 MG (*)] 100 mg PO BID PRN #20 cap 11/29/16 Meclizine HCl [Meclizine HCl 25 mg 25 mg PO TID PRN #20 tab 11/29/16 (RX,OTC)] morphINE SR 15 mg BID 12/01/16 Medical Decision Making - Diagnostics EKG Interpretation: EKG interpreted by me shows normal sinus rhythm with normal interval and axis. QRS is normal there is no significant ST elevation or depression. No arrhythmia. The rate is 57 Imaging Results: Imaging Impressions Chest X-Ray 09/08/17 13:12 Impression: Negative portable chest Chest x-ray reviewed by me is negative for pneumonia Procedures: IV normal saline, monitor ED Course/Re-evaluation: Re-evaluation 2:25 p.m.. Patient is stable. She and I discussed imaging, lab, EKG findings. We discussed treatment plan including criteria for return importance of follow-up further evaluation. She expresses understanding and agreement Differential Diagnosis: Fleeting and transient chest pain 3 days ago. None since. No evidence for acute VA, pulmonary embolus, pneumonia - Data Points Laboratory Results: Laboratory Results 09/08/17 13:20 09/08/17 13:20 09/08/17 09/08/17 09/08/17 13:20 13:20 13:20 WBC 8.25 10^3/uL 10^3/uL (3.80-9.50) RBC 4.56 10^6/uL 10^6/uL (4.18-5.33) Hgb 14.4 g/dL g/dL (12.6-16.3) Hct 42.1 % % (38.0-47.0) MCV 92.3 fL fL (81.5-99.8) MCH 31.6 pg pg (27.9-34.1) MCHC 34.2 g/dL g/dL (32.4-36.7) RDW 11.9 % % (11.5-15.2) Plt Count 256 10^3/uL 10^3/uL (150-400) MPV 10.5 fL fL (8.7-11.7) Neut % (Auto) 53.1 % % (39.3-74.2) Lymph % (Auto) 35.2 % % (15.0-45.0) [place] % (Auto) 6.1 % % (4.5-13.0) Eos % (Auto) 4.1 % % (0.6-7.6) Baso % (Auto) 1.3 % % (0.3-1.7) Nucleat RBC Rel Count 0.0 % % (0.0-0.2) Absolute Neuts (auto) 4.38 10^3/uL 10^3/uL (1.70-6.50) Absolute Lymphs (auto) 2.90 10^3/uL 10^3/uL (1.00-3.00) Absolute Monos (auto) 0.50 10^3/uL 10^3/uL (0.30-0.80) Absolute Eos (auto) 0.34 10^3/uL 10^3/uL (0.03-0.40) Absolute Basos (auto) 0.11 10^3/uL H 10^3/uL (0.02-0.10) Absolute Nucleated RBC 0.00 10^3/uL 10^3/uL (0-0.01) Immature Gran % 0.2 % % (0.0-1.1) Immature Gran # 0.02 10^3/uL 10^3/uL (0.00-0.10) D-Dimer 0.28 ug/mLFEU ug/mLFEU (0.00-0.50) Sodium 139 mEq/L mEq/L (135-145) Potassium 4.5 mEq/L mEq/L (3.5-5.2) Chloride 103 mEq/L mEq/L (97-110) Carbon Dioxide 27 mEq/l mEq/l (22-31) Anion Gap 9 mEq/L mEq/L (8-16) BUN 21 mg/dL mg/dL (7-23) Creatinine 0.6 mg/dL mg/dL (0.6-1.0) Estimated GFR > 60 Glucose 85 mg/dL mg/dL (70-100) Calcium 9.9 mg/dL mg/dL (8.5-10.4) Troponin I < 0.012 ng/mL ng/mL (0.000-0.034) Lipase 78 IU/L IU/L (23-300) Departure - Departure Disposition: Home, Routine, Self-Care Clinical Impression: Chest pain Qualifiers: Chest pain type: unspecified Qualified Code(s): R07.9 - Chest pain, unspecified Condition: Good Instructions: Chest Pain (ED) Additional Instructions: Activity as tolerated. Return for further chest discomfort. Follow up with your regular healthcare provider for further evaluation.
[2017-09-08 13:27] LABS: PLATELET COUNT 256 10^3/uL (150-400)
[2017-09-08 14:19] VITALS: BP 109/76; PULSE 68; RESP 15; TEMP 97.7
== END 2017-09-08 14:51 | disposition home or self-care (01) ==
DX: R07.9 Chest pain, unspecified (principal); I10 Essential (primary) hypertension; F17.200 Nicotine dependence, unspecified, uncomplicated

== ENCOUNTER 2017-10-30 17:08 | Emergency (ER) | payer MEDICAID ==
--- NOTE | 2017-10-30 18:01 | EDPHY ---
H & P Time Seen by Provider: 10/30/17 17:38 HPI/ROS: CHIEF COMPLAINT: "The left side of my body feels weird" HISTORY OF PRESENT ILLNESS: The patient is a 61-year-old female. She reports that she walked extensively but stopped 2 months ago. She is not sure if this is related. But since that time she has had increasing discomfort on her tire left side of the body. She states that goes from her head to her toe. She also has decreased sensation on the entire left side of her body. She denies any headache. No weakness. She has chronic back pain and this is not caused her more pain recently. She denies any recent trauma or fall. REVIEW OF SYSTEMS: My complete review of systems is negative except as mentioned in the HPI. Past Medical/Surgical History: Includes thyroid disease, degenerative disc disease, vertigo, essential tremor, TMJ, hypertension, depression, sinusitis Past surgical history: , tonsillectomy Social history: The patient denies drugs or alcohol. She does not smoke Smoking Status: Current every day smoker Physical Exam: Vitals noted GENERAL: Well-appearing, in no acute distress, alert. HEENT: Eyes normal to inspection, normal pharynx, no signs of dehydration. NECK: No thyromegaly, no lymphadenopathy, supple. RESPIRATORY: Clear to auscultation bilaterally, no rales, rhonchi or wheezing. CVS: Regular rate and rhythm, no rubs, murmurs, or gallops. ABDOMEN: Soft, nontender, nondistended, no organomegaly. BACK: Normal to inspection, no CVA tenderness. SKIN: Normal color, no rash, warm, dry. No pallor. EXTREMITIES: No pedal edema, no calf tenderness, no Homans sign or cords, no joint swelling. NEURO/PSYCH: Higher functions: Alert and Oriented x3. Normal speech and cognition. Normal mood and affect. Cranial nerves: Normal as tested. Cerebellar: Patient has a slight tremor. Good finger to nose, good heel-to- beckett, normal gait. Peripheral exam: Normal motor exam. Patient states slightly decreased sensation on the entire left side of her body. Normal reflexes. Constitutional: Initial Vital Signs Temperature (C) 36.6 C 10/30/17 17:11 Heart Rate 84 10/30/17 17:11 Respiratory Rate 18 04/05/18 17:11 Blood Pressure 126/84 H 10/30/17 17:11 O2 Sat (%) 100 10/30/17 17:11 O2 Delivery Mode Room Air Allergies/Adverse Reactions: Sulfa (Sulfonamide Antibiotics) Allergy (Intermediate, Verified 10/30/17 17:10) Hives Home Medications: Medication Instructions Recorded Propranolol HCl 10/08/14 CYCLOBENZAPRINE HCL [Flexeril] 5 mg PO TID 05/28/16 Valium 10 MG (*) 05/28/16 RX: Docusate Sodium [Colace 100 MG 100 mg PO BID PRN #20 cap 11/29/16 (*)] RX: Meclizine HCl [Meclizine HCl 25 mg PO TID PRN #20 tab 11/29/16 25 mg (RX,OTC)] morphINE SR 15 mg BID 12/01/16 Medical Decision Making - Diagnostics Imaging Results: Imaging Impressions Head CT 10/30/17 18:03 Impression: 1. Normal CT brain without contrast. 2. Consider MRI of the brain, if there is continued clinical concern. Findings and recommendations discussed with Emergency Department physician, ABRAHAM ROB at 18:29 hour, 10/30/2017. Final report concurs with initial preliminary interpretation. ED Course/Re-evaluation: In the emergency department I discussed possible etiologies with the patient. I answered all her questions. IV was placed. Laboratory studies and head CT were ordered. Head CT: No acute disease noted. Please refer the dictated report by Dr. Lopez. Patient's CBC was unremarkable. Chemistry panel was normal. I discussed the results with the patient. I answered all her questions. She was given warnings prior to leaving. She will return with worsening symptoms. She is given follow-up with Neurology. Differential Diagnosis: My differential includes but is not limited to mass, malignancy, CVA, dissection , aneurysm, electrolyte abnormality, sugar abnormality - Data Points Laboratory Results: Laboratory Results 10/30/17 18:27 10/30/17 18:27 10/30/17 10/30/17 18:27 18:27 WBC 7.85 10^3/uL 10^3/uL (3.80-9.50) RBC 4.77 10^6/uL 10^6/uL (4.18-5.33) Hgb 14.8 g/dL g/dL (12.6-16.3) Hct 41.9 % % (38.0-47.0) MCV 87.8 fL fL (81.5-99.8) MCH 31.0 pg pg (27.9-34.1) MCHC 35.3 g/dL g/dL (32.4-36.7) RDW 11.8 % % (11.5-15.2) Plt Count 260 10^3/uL 10^3/uL (150-400) MPV 10.3 fL fL (8.7-11.7) Neut % (Auto) 44.3 % % (39.3-74.2) Lymph % (Auto) 46.0 % H % (15.0-45.0) [place] % (Auto) 5.5 % % (4.5-13.0) Eos % (Auto) 3.2 % % (0.6-7.6) Baso % (Auto) 0.9 % % (0.3-1.7) Nucleat RBC Rel Count 0.0 % % (0.0-0.2) Absolute Neuts (auto) 3.48 10^3/uL 10^3/uL (1.70-6.50) Absolute Lymphs (auto) 3.61 10^3/uL H 10^3/uL (1.00-3.00) Absolute Monos (auto) 0.43 10^3/uL 10^3/uL (0.30-0.80) Absolute Eos (auto) 0.25 10^3/uL 10^3/uL (0.03-0.40) Absolute Basos (auto) 0.07 10^3/uL 10^3/uL (0.02-0.10) Absolute Nucleated RBC 0.00 10^3/uL 10^3/uL (0-0.01) Immature Gran % 0.1 % % (0.0-1.1) Immature Gran # 0.01 10^3/uL 10^3/uL (0.00-0.10) Sodium 141 mEq/L mEq/L (135-145) Potassium 3.9 mEq/L mEq/L (3.5-5.2) Chloride 104 mEq/L mEq/L (97-110) Carbon Dioxide 26 mEq/l mEq/l (22-31) Anion Gap 11 mEq/L mEq/L (8-16) BUN 18 mg/dL mg/dL (7-23) Creatinine 0.6 mg/dL mg/dL (0.6-1.0) Estimated GFR > 60 Glucose 78 mg/dL mg/dL (70-100) Calcium 9.6 mg/dL mg/dL (8.5-10.4) Departure - Departure Disposition: Home, Routine, Self-Care Clinical Impression: Paresthesia Condition: Good Instructions: Paresthesia (ED) Additional Instructions: Return with increasing weakness, numbness, headache or any other concerns. Referrals: [facility],. [Primary Care Provider] - 2-3 days without fail Alli Landrum DO [Medical Doctor] - 5-7 days, call for appt.
[2017-10-30 18:37] LABS: PLATELET COUNT 260 10^3/uL (150-400)
[2017-10-30 19:45] VITALS: BP 110/71
== END 2017-10-30 19:45 | disposition home or self-care (01) ==
LOC: EEVIPCON 17:08
DX: R20.2 Paresthesia of skin (principal); I10 Essential (primary) hypertension; F17.200 Nicotine dependence, unspecified, uncomplicated

== ENCOUNTER 2018-02-06 16:21 | Emergency (ER) | payer MEDICAID ==
--- NOTE | 2018-02-06 17:01 | EDPHY ---
H & P Stated Complaint: bilat leg pain Time Seen by Provider: 02/06/18 16:56 HPI/ROS: HPI: This is a 62-year-old female who presents with Chief Complaint: Bilateral leg pain Location: Left foot Quality: Pain Duration: Several weeks Signs and Symptoms: No bleeding, no radiation, no numbness, no weakness, no tingling, no incontinence, no decreased range of motion, + swelling,+ pain, no fever Timing: Acute on chronic Severity: Moderate Context: Patient has a history of lumbar degenerative disc disease on pain management and disability presents with complaints of left foot on the great toe lateral aspect pain for the last several weeks accompanied by swelling over the last few days. She reports that the ankle offer toe has changed over the last 2 weeks. She has not had any injury or trauma. She also complains of sciatic type pain running down the back of both of her legs but this is not new for her. She reports that this is normal for her chronic lower back pain. She does attend pain management and is on a fentanyl patch. Patient reports that she does a lot a walking and has believe that this increased activity has aggravated her left foot pain. Modifying Factors: Regular home pain medications Comment: ROS: see HPI Constitutional: No fever, no chills, no weight loss Eyes: No blurred vision Respiratory: No shortness of breath, no cough Cardiovascular: No chest pain Gastrointestinal: No nausea, no vomiting no diarrhea Genitourinary: No dysuria Extremities: No myalgias Neurologic: No weakness, no numbness Skin: No rashes Hematologic: No bruising, no bleeding MEDICAL/SURGICAL/SOCIAL HISTORY: Medical/surgical history: Thyroid disease, degenerative disc disease, vertigo, , tonsillectomy, essential tremor, TMJ, Hypertension, depression, chronic sinusitis Social history: Former smoker. Disabled. Homeless. CONSTITUTIONAL: Extremely well-appearing talkative middle-aged white female awake and alert, no obvious distress HEENT: Atraumatic and normocephalic. NECK: supple, no midline tenderness Cardiovascular: Normal S1/S2, regular rate, regular rhythm, without murmur rub or gallop. PULMONARY/CHEST: Symmetrical and nontender. no crepitus. Clear to auscultation bilaterally. Good air movement. No accessory muscle usage. ABDOMEN: Soft, nondistended, nontender, no ecchymosis. EXTREMITIES: 2/2 pulses, strength 5/5, left Ankle: Plantar flexion to 50, dorsiflexion to 20. Foot inversion to 35 degree. No tenderness/swelling Anterior talofibular ligament. No tenderness/swelling Calcaneofibular ligament , no tenderness/swelling posterior talofibular ligament, no tenderness/swelling posterior inferior tibiofibular ligament. Achilles tendon intact. Left great toe shows hallux valgus no surrounding erythema, tenderness to palpation. No fluctuance appreciated. DIP/PIP/MCP flexion/extension intact with good light touch sensation. no deformities, no clubbing, no cyanosis or edema. NEUROLOGICAL: no focal neuro deficits. GCS 15. Light touch sensation intact. SKIN: Warm and dry, no erythema. no rash. Good capillary refill. Miloe oscar Source: Patient, Old records Exam Limitations: No limitations - Personal History Current Tetanus/Diphtheria Vaccine: Yes Tetanus Vaccine Date: 2009 - Medical/Surgical History Hx Asthma: No Hx Chronic Respiratory Disease: No Hx Diabetes: No Hx Cardiac Disease: No Hx Renal Disease: No Hx Cirrhosis: No Hx Alcoholism: No Hx HIV/AIDS: No Hx Splenectomy or Spleen Trauma: No Other PMH: Thyroid disease, degenative disc disease, vertigo, , tonsillectomy, essential tremor, TMJ, Hypertension, depression, chronic sinusitis - Social History Smoking Status: Former smoker Constitutional: Initial Vital Signs Temperature (C) 36.6 C 02/06/18 16:31 Heart Rate 89 02/06/18 16:31 Respiratory Rate 16 02/06/18 16:31 Blood Pressure 119/85 H 02/06/18 16:31 O2 Sat (%) 96 02/06/18 16:31 O2 Delivery Mode Room Air Allergies/Adverse Reactions: Sulfa (Sulfonamide Antibiotics) Allergy (Intermediate, Verified 02/06/18 16:33) Hives Home Medications: Medication Instructions Recorded Propranolol HCl 10/08/14 CYCLOBENZAPRINE HCL [Flexeril] 5 mg PO TID 05/28/16 Valium 10 MG (*) 05/28/16 Docusate Sodium [Colace 100 MG (*)] 100 mg PO BID PRN #20 cap 11/29/16 Meclizine HCl [Meclizine HCl 25 mg 25 mg PO TID PRN #20 tab 11/29/16 (RX,OTC)] morphINE SR 15 mg BID 12/01/16 Medical Decision Making - Diagnostics Imaging Results: Imaging Impressions Foot X-Ray 02/06/18 17:06 Impression: 1. Moderate hallux valgus with bunion distal head of the first metatarsal. 2. Mild degenerative changes first MTP joint.. ED Course/Re-evaluation: Left foot x-ray and oral medications ordered. I explained to the patient that she is on pain management and that the ER does not prescribe pain medications for these type of patients-Patient understood this. I did give her gabapentin 600 mg for neuropathic pain. I do not believe that her low back pain is changed from her baseline per the patient history and physical exam. There are no neurological deficits and there is no need to warrant emergent MRI at this time. X-ray my read shows: Moderate hallux valgus with bunion distal head of the first metatarsal. 2. Mild degenerative changes first MTP joint. Advised to wear bunion pad and proper fitting shoes with podiatry follow-up. Patient was ambulatory at discharge without any deficits.. No signs of neurovascular compromise/tenting of skin/compartment syndrome/ extremities and joints examined above and below area of concern and are neurovascularly intact/cauda equina syndrome. This patient was seen under the supervision of my secondary supervising physician. I evaluated care for this patient independently. Discussed this patient with Dr. Ho who did not see the patient. Differential Diagnosis: Back pain including but not limited to muscular pain, herniated disc, spine fracture, intra-abdominal causes and urinary tract infection. - Data Points Medications Given: Discontinued Medications Gabapentin (Neurontin) 600 mg PO EDNOW ONE Stop: 02/06/18 17:08 Last Admin: 02/06/18 17:27 Dose: 600 mg Departure - Departure Disposition: Home, Routine, Self-Care Clinical Impression: Chronic pain disorder, Bunion of great toe of left foot, Hallux valgus of left foot Chronic low back pain with left-sided sciatica Qualifiers: Back pain laterality: left Qualified Code(s): M54.42 - Lumbago with sciatica, left side Condition: Good Instructions: Bunion (ED), Chronic Pain (ED) Additional Instructions: Please return to your pain management and primary care provider for follow up to discuss pain control measures. Please wear proper fitting shoes and go to the store to purchase a bunion pad to prevent rubbing of your bunion on your shoe. Follow-up with Podiatry if symptoms continue to persist. The x-rays obtained in the emergency department today demonstrate no evidence of an obvious fracture. Referrals: PCP Not In,Dictionary [Medical Doctor] - As per Instructions Phuong Lynch DPM [Doctor of Podiatric Medicine] - As per Instructions
[2018-02-06] MEDS ORDERED: GABAPENTIN 300 MG CAP PO ONE (17:07)
[2018-02-06 18:01] VITALS: BP 128/90
== END 2018-02-06 18:30 | disposition home or self-care (01) ==
DX: M21.612 Bunion of left foot (principal); M20.12 Hallux valgus (acquired), left foot; G89.29 Other chronic pain; M54.42 Lumbago with sciatica, left side; I10 Essential (primary) hypertension; Z87.891 Personal history of nicotine dependence

== ENCOUNTER 2018-05-22 14:44 | Emergency (ER) | payer MEDICAID ==
[2018-05-22 14:47] VITALS: BP 110/84
--- NOTE | 2018-05-22 15:25 | EDPHY ---
H & P Stated Complaint: "heard a crack in head" last night while sleeping. Time Seen by Provider: 05/22/18 15:19 - Personal History Current Tetanus Diphtheria and Acellular Pertussis (TDAP): Yes Tetanus Vaccine Date: 2009 - Medical/Surgical History Hx Asthma: No Hx Chronic Respiratory Disease: No Hx Diabetes: No Hx Cardiac Disease: No Hx Renal Disease: No Hx Cirrhosis: No Hx Alcoholism: No Hx HIV/AIDS: No Hx Splenectomy or Spleen Trauma: No Other PMH: Thyroid disease, degenative disc disease, vertigo, , tonsillectomy, essential tremor, TMJ, Hypertension, depression, chronic sinusitis - Social History Smoking Status: Former smoker Constitutional: Initial Vital Signs Temperature (C) 36.4 C 05/22/18 14:44 Heart Rate 76 05/22/18 14:44 Respiratory Rate 16 05/22/18 14:44 Blood Pressure 110/84 H 05/22/18 14:44 O2 Sat (%) 96 05/22/18 14:44 O2 Delivery Mode Room Air Allergies/Adverse Reactions: Sulfa (Sulfonamide Antibiotics) Allergy (Intermediate, Verified 02/06/18 16:33) Hives Home Medications: Medication Instructions Recorded Propranolol HCl 10/08/14 CYCLOBENZAPRINE HCL [Flexeril] 5 mg PO TID 05/28/16 Valium 10 MG (*) 05/28/16 Docusate Sodium [Colace 100 MG (*)] 100 mg PO BID PRN #20 cap 11/29/16 Meclizine HCl [Meclizine HCl 25 mg 25 mg PO TID PRN #20 tab 11/29/16 (RX,OTC)] Fentanyl 05/22/18 Medical Decision Making ED Course/Re-evaluation: CHIEF COMPLAINT: Sidney "crack" on head HISTORY OF PRESENT ILLNESS: The patient is a 62 y/o female complaining of hearing a "crack" on her head this morning. She is unsure if this crack was from her head, ear or neck. She is still hearing the right-sided cracking in her head and believes she can push air between her ears. No headache, chest pain, shortness of breath, abdominal pain, urinary or bowel complaints, numbness, paresthesias. REVIEW OF SYSTEMS: A comprehensive 10 system review of systems is otherwise negative aside from elements mentioned in the history of present illness and medical decision making. PHYSICAL EXAM: HR, BP, O2 Sat, RR. Temp noted General Appearance: Alert, well hydrated, appropriate, and non-toxic appearing. Head: Atraumatic without scalp tenderness or obvious injury Eyes: Pupils equal, round, reactive to light and accommodation, EOMI, no trauma , no injection. Ears: Clear bilaterally, no perforation, normal landmarks Nose: Atraumatic, no rhinorrhea, clear. Throat: There is no erythema or exudates, no lesions, normal tonsils, mucus membranes moist. Neck: Supple, 2+ carotid upstroke, nontender, no lymphadenopathy. Respiratory: No retractions, no distress, no wheezes, and no accessory muscle use. Lungs are clear to auscultation bilaterally. Cardiovascular: Regular rate and rhythm, no murmurs, rubs, or gallops. Bilateral carotid, radial, dorsalis pedis, and posterior tibial pulses intact. Good capillary refill all extremities. Gastrointestinal: Abdomen is soft, nontender, non-distended, no masses, no rebound, no guarding, no peritoneal signs. Musculoskeletal: Normal active ROM of all extremities, atraumatic. Neurological: Alert, appropriate, and interactive. The patient has normal DTRs and non-focal cranial nerves, motor, sensory, and cerebellar exam. Skin: No rashes, good turgor, no nodules on palpation. Past medical history: Thyroid disease, degenerative disc disease, vertigo, , essential tremor, TMJ, hypertension, depression, chronic sinusitis Past surgical history: , tonsillectomy Family history: Denies Social history: Lives in [place], single, not employed DIAGNOSTICS/PROCEDURES/CRITICAL CARE TIME: Not indicated DIFFERENTIAL DIAGNOSIS: The differential diagnosis for the patient's head "cracking" included but was not limited to inner ear anomaly, subarachnoid hemorrhage, migraine headache, tension headache and infectious causes such as meningitis, pharyngitis and sinusitis. MEDICAL DECISION MAKING: The patient is a 62 y/o female presenting with hearing a "crack" on her head this morning. Her exam is normal and I do not see any ear anomalies. I have referred her to an ENT for her ear "cracking". Return precautions provided; patient is comfortable with this plan. Departure - Departure Disposition: Home, Routine, Self-Care Clinical Impression: Auditory complaints of right ear Condition: Good Instructions: Earache (ED) Additional Instructions: 1. Follow-up with an ENT in the next week. 2. Follow-up with your primary doctor within 72 hours. 3. Return to the Emergency Department for fever, chest pain, shortness of breath , increasing pain or other worsening of condition. Referrals: Gisselle Arredondo MD [Medical Doctor] - As per Instructions Report Scribed for: Saad Santacruz Report Scribed by: Deja Kirby Date of Report: 05/22/18 Time of Report: 15:34
== END 2018-05-22 15:37 | disposition home or self-care (01) ==
DX: H93.291 Other abnormal auditory perceptions, right ear (principal); Z87.891 Personal history of nicotine dependence

== ENCOUNTER → 2018-08-11 | Outpatient (CLI) | payer MEDICAID | LOC: FIMAGING 09:04 | DX: Z13.820 Encounter for screening for osteoporosis (principal); Z78.0 Asymptomatic menopausal state ==

== ENCOUNTER → 2018-08-19 | Outpatient (CLI) | payer MEDICAID | LOC: FIMAGING 10:19 | PROVIDERS: ATTEND Otolaryngology | DX: E04.2 Nontoxic multinodular goiter (principal) ==

== ENCOUNTER → 2018-09-09 | Outpatient (CLI) | payer MEDICAID ==
[~2018-09-09] MED LIST: LIDOCAINE 1% 300 MG/30 ML SDV ONE
== END ==
LOC: FIMAGING 11:44
PROVIDERS: ATTEND Otolaryngology
DX: D44.0 Neoplasm of uncertain behavior of thyroid gland (principal); E04.1 Nontoxic single thyroid nodule

== ENCOUNTER 2018-10-14 07:42 | Observation (INO) | payer MEDICAID ==
[2018-10-14] MEDS ORDERED: LR 1,000 ML IV ONE (07:55)
[2018-10-14] MEDS ORDERED: ceFAZolin 2 GM/DEXTROSE 100 ML IV ONE (08:28)
--- NOTE | 2018-10-14 08:28 | PDGENHP ---
History and Physical History and Physical: Pt with MNG. R nodule 2.8 cm was FLUS on FNA and suspicious on Afirma. L nodule was benign though 4.1 cm. D/t the suspicion for malignancy and size of the L nodule, we elected to perform a total thyroidectomy. She agrees and understands the risks. ALL: sulfa PE: AAOx3 NAD RA, sats high 90s neck with MNG palpable A/P: Plan for total thyroidectomy for MNG, R sided nodule suspicious for malignancy. Will use NIMS tube. Informed consent obtained
[2018-10-14] MEDS ORDERED: LIDO/EPI 1% **Not for Epidural 20 ML MDV ONE (09:06)
[2018-10-14] MEDS ORDERED: MIDAZOLAM 2 MG/2 ML VIAL IVP ONE (09:09)
[2018-10-14] MEDS ORDERED: HYDROCODONE/APAP 5/325 TAB PO PRN (09:10)
[2018-10-14] MEDS ORDERED: LR 500 ML IV PRN (09:10)
[2018-10-14] MEDS ORDERED: ONDANSETRON 4 MG/2 ML VIAL IVP PRN ×2 (09:10→12:11)
[2018-10-14] MEDS ORDERED: NALOXONE HCL 0.4 MG/ML INJ IVP PRN (09:10)
[2018-10-14] MEDS ORDERED: DEXAMETHASONE 4 MG/ML VIAL IVP PRN (09:10)
[2018-10-14] MEDS ORDERED: HYDROmorphONE/DILAUDID 2 MG/ML INJ IVP PRN (09:10)
[2018-10-14] MEDS ORDERED: oxyCODONE IR 5 MG TAB PO PRN (09:10)
[2018-10-14] MEDS ORDERED: ALBUTEROL 3 ML DEYVIAL IH PRN (09:10)
[2018-10-14] MEDS ORDERED: NS 500 ML IV PRN (09:10)
--- NOTE | 2018-10-14 09:10 | PDANEPAE ---
ANE History of Present Illness here for thyroidectomy ANE Past Medical History - Cardiovascular History Hx Hypertension: No Hx Arrhythmias: No Hx Chest Pain: No Hx Coronary Artery / Peripheral Vascular Disease: No Hx CHF / Valvular Disease: No Hx Palpitations: No - Pulmonary History Hx COPD: No Hx Asthma/Reactive Airway Disease: Yes Hx Recent Upper Respiratory Infection: No Hx Oxygen in Use at Home: No Hx Sleep Apnea: No Sleep Apnea Screening Result - Last Documented: Negative Pulmonary History Comment: INHALER - Neurologic History Hx Cerebrovascular Accident: No Hx Seizures: No Hx Dementia: No Neurologic History Comment: HEADACHES OCCAS. ESSENTIAL TREMORS - Endocrine History Hx Diabetes: No Endocrine History Comment: THYROID NODULES - Renal History Hx Renal Disorders: No - Liver History Hx Hepatic Disorders: No - Neurological & Psychiatric Hx Hx Neurological and Psychiatric Disorders: No Neurological / Psychiatric History Comment: MILD DEPRESSION - Cancer History Hx Cancer: No - Congenital Disorder History Hx Congenital Disorders: No - GI History Hx Gastrointestinal Disorders: No Gastrointestinal History Comment: HEMORRHOID - Other Health History Other Health History: CHRONIC PAIN PT - Chronic Pain History Chronic Pain: Yes (SPINE,HEAD, LEGS & HIPS) - Surgical History Prior Surgeries: C SECTION. TONSILLECTOMY. THYROID BX ANE Review of Systems Review of systems is: negative Review of Systems: - Exercise capacity Exercise capacity: >=4 METS METS (RN): 4 METS ANE Patient History - Allergies Allergies/Adverse Reactions: Sulfa (Sulfonamide Antibiotics) Allergy (Intermediate, Verified 02/06/18 16:33) Hives - Home Medications Home medications: home medication list seen and reviewed Home Medications: Propranolol HCl 10/08/14 [Last Taken 10/13/18] Valium 10 MG (*) 05/28/16 [Last Taken 10/14/18 06:00] Fentanyl 05/22/18 [Last Taken 10/14/18] Aspirin 10/05/18 [Last Taken 10/13/18] DULoxetine 10/05/18 [Last Taken 10/13/18] Gabapentin 10/05/18 [Last Taken 10/13/18] Herbals/Supplements -Info Only 10/05/18 [Last Taken 1 Week Ago ~10/07/18] Montelukast Sodium 10/05/18 [Last Taken 10/13/18] Proair Hfa 10/05/18 [Last Taken 10/13/18] Vicodin 5-300 mg Tablet 10/05/18 [Last Taken 10/14/18 06:00] ZOLPIDEM TARTRATE 10/05/18 [Last Taken 10/13/18] - NPO status NPO Status: no food or drink >8 hours NPO Since - Liquids (Date): 10/14/18 NPO Since - Liquids (Time): 07:30 NPO Since - Solids (Date): 10/13/18 NPO Since - Solids (Time): 16:00 - Smoking Hx Smoking Status: Former smoker - Family Anes Hx Family Hx Anesthesia Complications: NEG ANE Labs/Vital Signs - Vital Signs Vital Signs: reviewed preoperatively; see RN documention for details Blood Pressure: 120/74 Heart Rate: 49 Respiratory Rate: 18 O2 Sat (%): 94 Height: 167.64 cm Weight: 68.039 kg ANE Physical Exam - Airway Neck exam: FROM Mallampati Score: Class 1 - Pulmonary Pulmonary: no respiratory distress - Cardiovascular Cardiovascular: regular rate and rhythym - ASA Status ASA Status: II ANE Anesthesia Plan Anesthesia Plan: general endotracheal anesthesia
[2018-10-14] MEDS ORDERED: MIDAZOLAM 2 MG/2 ML VIAL ONE (09:12)
[2018-10-14] MEDS ORDERED: PROPOFOL/EMULSION 500 MG/50 ML BOTTLE IV ONE (09:15)
[2018-10-14] MEDS ORDERED: ROCURONIUM 50 MG/5 ML VIAL ONE (09:15)
[2018-10-14] MEDS ORDERED: DEXAMETHASONE 4 MG/ML VIAL ONE ×2 (09:48)
[2018-10-14] MEDS ORDERED: fentaNYL 250 MCG/5 ML INJ ONE (09:48)
[2018-10-14] MEDS ORDERED: KETAMINE 200 MG/20 ML VIAL ONE (09:49)
[2018-10-14] MEDS ORDERED: GLYCOPYRROLATE 0.2 MG/1 ML VIAL ONE (09:54)
[2018-10-14] MEDS ORDERED: SUGAMMADEX SODIUM 200 MG/2 ML VIAL IVP ONE (11:46)
--- NOTE | 2018-10-14 12:11 | POSTOPPROG ---
Post Op Note Date of Operation: 10/14/18 Surgeon: Gisselle Arredondo Solar Project Engineer: Elena Gar MD Anesthesiologist: Chris Garcia MD Anesthesia: GET(General Endotracheal) Pre-op Diagnosis: MNG, R nodule suspicious on afirma, Lnodule 4.1 cm Post-op Diagnosis: same Procedure: total thyroidectomy, RLN monitoring Findings: R thyroid nodule stuck to surrounding muscle, B RLN intact, 2 parathyroids Inf/Abcess present in the surg proc area at time of surgery?: No EBL: 50-100 Complications: none apparent Bowel Protocol: N/A Clean Closure Performed: Yes Drains: Daryl Turner
[2018-10-14] MEDS ORDERED: D5W 1/2 NS W/ 20 KCl/L 1,000 ML IV SCH (12:15)
[2018-10-14] MEDS ORDERED: ONDANSETRON 4 MG/2 ML VIAL ONE (12:19)
[2018-10-14] MEDS ORDERED: HYDROCOD/APAP 7.5/325 IN 15ML UDCUP PO PRN (12:19)
[2018-10-14] MEDS ORDERED: fentaNYL 100 MCG/2 ML INJ ONE (12:19)
[2018-10-14] MEDS: fentaNYL 100 MCG/2 ML INJ IVP PRN ×2 (12:23→12:45)
--- NOTE | 2018-10-14 13:05 | GOP ---
[f rep st] OPERATIVE REPORT DATE OF OPERATION: 10/14/2018 SURGEON: Gisselle Arredondo MD NETWORK SUPPORT: Mirian Gar MD. ANESTHESIA: General. PREOPERATIVE DIAGNOSIS: 1. Multinodular goiter. 2. Right thyroid nodule that was suspicious on Afirma for malignancy. 3. Left-sided thyroid nodule that is over 4 cm. POSTOPERATIVE DIAGNOSIS: 1. Multinodular goiter. 2. Right thyroid nodule that was suspicious on Afirma for malignancy. 3. Left-sided thyroid nodule that is over 4 cm. PROCEDURE PERFORMED: 1. Total thyroidectomy. 2. Recurrent laryngeal nerve monitoring using the [employer] system. FINDINGS: The patient was found to have a fairly large firm nodule on the right that seemed quite stuck down to the surrounding musculature and tissues. A cuff of muscle was taken to make sure that we did not leave any potential malignancy there. The left side had a large nodule that was softer and not quite as stuck down, but her entire thyroid was somewhat sticky, such as a Maldonado thyroiditis patient. Both recurrent laryngeal nerves were found, and kept intact and stimulated within the end of the procedure. We visualized at least the superior and probably the inferior parathyroid on the right, and what looked like the inferior parathyroid on the left. Preoperative PTH was 57. ESTIMATED BLOOD LOSS: Minimal. INDICATIONS: The patient is a pleasant 62-year-old woman, who has a history of large thyroid nodules that were palpated on exam. An ultrasound was done showing a 2.8 cm nodule on the right and a 4.1 cm nodule on the left. Both of these were biopsied. The left side was benign. The right side was a follicular lesion of undetermined significance. Afirma was sent, and this testing showed that it was suspicious for malignancy. I discussed this with her and recommended at least a right enmanuel-thyroidectomy to remove this and confirm that there was or was not malignancy. We discussed about removing the entire thyroid at the same time secondary to the left thyroid nodule being over 4 cm, which would be an indication to remove it. It also would be an indication to remove it if she had malignancy on the right. She elected to go ahead and remove the entire thyroid, so she would not have to worry about potentially doing a completion thyroidectomy or continuing to monitor the left- sided nodule. She understands that she would have to be on Synthroid postoperatively, as well as understands the risks. DESCRIPTION OF PROCEDURE: The patient was first seen in the preoperative area where informed consent was obtained. She was then brought back to the operating room where Anesthesia sedated and intubated her using the NIM tube. She was turned 180 degrees, and a shoulder roll was placed. She was prepped and draped in sterile fashion. The NIM tube monitoring was set up and confirmed to be tracking both nerves. Once this was done, we marked out the incision that was about 4.5 cm in between the sternal notch and the cricoid, and about 6 mL of 1% lidocaine with 1:100,000 epinephrine was injected into the skin. At this point, she was prepped with Betadine and draped in a sterile fashion. A universal time out protocol was performed. After confirming the patient and procedure, a 15-blade was used to make an incision through the skin and subcutaneous tissues, as well as the platysma. Subplatysmal flaps were elevated superiorly and inferiorly, and then Weitlaner retractors were used to give visualization. We then divided the strap musculature in the midline and then started elevating the strap musculature off the right side with the underlying thyroid there. Around the area of the nodule , which was in the superior aspect of this lobe, she was significantly stuck down. There was an area of muscle that was attached to the nodule, and so a cuff of tissue was taken here, to take care to not leave any potential malignancy. We continued to use blunt and sharp dissection to release the fascial bands around the thyroid. Once this had been done and the strap musculature was retracted back, the superior pole was grasped using a Steedman, and then a Burlisher instrument was used to gently delineate the superior pole vessels. The artery was clipped proximally and then divided using the Harmonic scissors inferiorly, and then the vein was divided using Harmonic scissors. There was no active bleeding. We continued using blunt and sharp dissection to completely release the superior pole. Once this was done, we moved inferiorly, found, ligated, and divided the inferior pole vessels. At this point, the entire thyroid was able to be retracted medially. We continued to come along the lateral aspect of the thyroid at this point, taking care to look out for the nerve, as well as any parathyroid tissue. She did have what looked like some superior parathyroid in its normal location. This was kept in situ, and she also had what looked to be suspicious for an inferior parathyroid. This was kept in situ, as well. The recurrent laryngeal nerve was found, and then, once this was found, it was dissected, gently releasing the tissues over the top of it, up to its insertion into the cricothyroid joint. Once this was done , the nerve was completely released and visualized. Vazquez ligament was able to be released using sharp dissection, and a small amount of bipolar cautery was used to cauterize this. The underlying trachea was released from the thyroid, and the thyroid isthmus was divided using the Harmonic scissors. Then, the right thyroid lobe superior pole was marked using a suture, and then this was sent for permanent pathology. At this point, we turned our attention to the left side. We started the dissection in the same fashion, releasing the strap musculature off the underlying thyroid. A Junior retractor was used to retract this laterally. We started superiorly, and then we continued and performed the left thyroid lobectomy in the exact same fashion as on the right, with the exception that there was no significant musculature involvement, so not a significant cuff of musculature was taken. The superior pole vessels were clamped, ligated, divided , and released; then the inferior pole vessels. Then, the thyroid was released on its lateral aspect after finding the recurrent laryngeal nerve, and keeping this intact and under visualization. What was thought to be the left inferior parathyroid gland was visualized and kept intact. Once the left thyroid lobe was completely removed, it was inspected. There was no parathyroid tissue attached to this, and so this was sent off the field for permanent pathology, also marking the left superior lobe. Once this was done, the wound was irrigated out copiously with normal saline and then suctioned clear. Both nerves were able to be stimulated using the nerve monitor. Any small bleeding vessels were cauterized using bipolar cautery. A small amount of Surgicel was placed in the tracheoesophageal groove overlying the nerve on both sides, and then a 10-Tajik drain was placed in the tracheoesophageal groove on both sides and then exited the right side of the skin and sutured into place using a 2-0 silk. At this point, the strap musculature was closed using a 3-0 Vicryl in a running fashion, and then the platysma and subcutaneous tissues were closed using 3-0 Vicryl in an intermittent fashion. Then, the skin was closed using a 5-0 Monocryl in a running subcuticular fashion. After this was done, the wound was cleaned and then dried. Mastisol was placed over the skin edges, and then Steri-Strips were placed over the Mastisol in the incision. The bulb was holding suction. The patient was turned back over to Anesthesia where she was awoken, extubated, and taken to PACU in stable condition. There were no complications, and she tolerated the procedure well. COMPLICATIONS: None. /[id number]/MODL MTDD
[2018-10-14] MEDS ORDERED: DIAZEPAM 5 MG TAB PO PRN (16:10)
[2018-10-14] MEDS ORDERED: ALBUTEROL 60 PUFFS/8 GM MDI IH PRN (16:11)
[2018-10-14] MEDS: HYDROCODONE/APAP 5/325 TAB PO PRN ×2 (17:18→21:09)
[2018-10-14] MEDS ORDERED: MONTELUKAST SODIUM 10 MG TAB PO SCH (18:00)
[2018-10-14] MEDS: PROPRANOLOL HCL 40 MG TAB PO SCH (20:29)
[2018-10-14] MEDS: CALCIUM CARBONATE 500 MG TAB PO SCH (20:30)
[2018-10-14] MEDS: GABAPENTIN 300 MG CAP PO SCH (20:30)
[2018-10-15] MEDS: HYDROCODONE/APAP 5/325 TAB PO PRN ×2 (05:22→09:37)
[2018-10-15] MEDS ORDERED: LEVOTHYROXINE 112 MCG TAB PO SCH (06:00)
[2018-10-15] MEDS ORDERED: DULoxetine 30 MG CAP PO SCH (09:00)
[2018-10-15] MEDS: CALCIUM CARBONATE 500 MG TAB PO SCH (09:37)
[2018-10-15] MEDS: PROPRANOLOL HCL 40 MG TAB PO SCH (09:38)
[2018-10-15] MEDS: GABAPENTIN 300 MG CAP PO SCH (09:38)
--- NOTE | 2018-10-15 10:35 | POSTANESTH ---
Post Anesthetic Evaluation Cardiovascular Status: Normal, Stable Respiratory Status: Normal, Stable Level of Consciousness/Mental Status: Can Participate in Eval Pain Control: Adequate, Prn Tx Ordered Nausea/Vomiting Control: Adequate, Prn Tx Ordered Complications Possibly Related to Anesthesia: None Noted
[2018-10-15 11:26] VITALS: BP 89/51
--- NOTE | 2018-10-15 12:00 | SOAPPROG ---
SOAP Progress Note Assessment/Plan: Assessment: POD 1 TT. Doing well, PTH 23. Ca high 8s. She feels good, tolerating po. Needs to go home with drain. Likely can remove in clinic tomorrow. She agrees. D/c home with synthroid, ca, and pain meds. Plan: 10/15/18 11:58 Subjective: doing well, voice strong. no dysphagia. c/o a mild headache. No sig neck pain. Objective: afvss Ra incision c/d/i drain in place stripped put out 60 cc overnight Vital Signs Temp Pulse Resp BP Pulse Ox 36.8 C 70 14 89/51 L 91 L 10/15/18 11:23 10/15/18 11:23 10/15/18 11:23 10/15/18 11:23 10/15/18 11:23 10/14/18 10/15/18 10/16/18 05:59 05:59 05:59 Intake Total 2100 550 Output Total 80 Balance 2019 550 - Pending Discharge Pending Discharge Within 24 Hours: Yes Pending Discharge Date: 10/16/18 Pending Discharge Time: 11:00 ICD10 Worksheet Patient Problems: Problems Problem Status Onset Multinodular thyroid Acute Benign positional vertigo Acute Chronic low back pain Acute Constipation Acute Fatigue Acute - ICD10 Problem Qualifiers (1) Multinodular thyroid
--- NOTE | 2018-10-15 14:10 | ASMTLACE ---
JEEVAN Length of stay for Answers: 1 day current admission Acuity / Level of Answers: No Care: Did the patient have an inpatient admission? Comorbidities - select Answers: Opioid dependence all that apply / Chronic pain Other Notes: HTN # of Emergency department Answers: 1-2 visits in the last 6 months Social determinants Answers: Mental health diagnosis (anxiety, depression, pers onality disorders, etc.) Score: 10 Date Signed: 10/15/2018 02:09 PM Electronically Signed By:Paulina Narayanan RN
--- NOTE | 2018-10-15 14:13 | ASMTCMCOM ---
CM Note CM Note Notes: Pt admitted for a scheduled surgery, will dc home when medically stable. CM available for any changes. DC Plan: Independent Date Signed: 10/15/2018 02:12 PM Electronically Signed By:Paulina Narayanan RN
== END 2018-10-15 13:56 | disposition home or self-care (01) ==
LOC: F3N 07:42 → F3E 14:34
PROVIDERS: ADMIT Otolaryngology; ATTEND Otolaryngology
PROC: 0GTK0ZZ Resection of Thyroid Gland, Open Approach (ICD-10-PCS; principal; 2018-10-14 09:30)
DX: E04.2 Nontoxic multinodular goiter (principal); H93.12 Tinnitus, left ear
CPT/HCPCS: 60240; G0378; J0690; J1100; J2250; J2270; J2405; J2704; J3010

== ENCOUNTER 2018-12-10 19:59 | Emergency (ER) | payer MEDICAID ==
[2018-12-10 20:04] VITALS: BP 113/79
--- NOTE | 2018-12-10 20:17 | EDPHY ---
H & P Stated Complaint: left sided headache, worsening Time Seen by Provider: 12/10/18 20:17 - Personal History Tetanus Vaccine Date: 2009 - Medical/Surgical History Hx Asthma: No Hx Chronic Respiratory Disease: No Hx Diabetes: No Hx Cardiac Disease: No Hx Renal Disease: No Hx Cirrhosis: No Hx Alcoholism: No Hx HIV/AIDS: No Hx Splenectomy or Spleen Trauma: No Other PMH: Thyroid disease, degenative disc disease, vertigo, , tonsillectomy, essential tremor, TMJ, Hypertension, depression, chronic sinusitis - Social History Smoking Status: Former smoker Constitutional: Initial Vital Signs Temperature (C) 37.1 C 12/10/18 20:02 Heart Rate 79 12/10/18 20:02 Respiratory Rate 18 12/10/18 20:02 Blood Pressure 113/79 12/10/18 20:02 O2 Sat (%) 95 12/10/18 20:02 O2 Delivery Mode Room Air Allergies/Adverse Reactions: Sulfa (Sulfonamide Antibiotics) Allergy (Intermediate, Verified 12/10/18 20:02) Hives Home Medications: Medication Instructions Recorded Propranolol HCl [Inderal 40mg (*)] 40 mg PO BID 10/08/14 Diazepam 5 mg PO BID PRN 05/28/16 Duloxetine HCl 30 mg PO DAILY 10/05/18 Gabapentin 300 mg PO TID 10/05/18 Montelukast Sodium 10 mg PO DAILY 10/05/18 Proair Hfa 2 puffs IH Q4-6PRN PRN 10/05/18 Zolpidem Tartrate 5 mg PO HS PRN 10/05/18 Hydrocodone/APAP 5/325 [[place] 1 tab PO Q8H PRN 10/14/18 5/325 (*)] Calcium Carbonate [[place] 1,000 mg PO BID #60 tab 10/15/18 Calcium 500 mg (*)] Hydrocodone/APAP 5/325 [[place] 1 tab PO Q4HRS PRN tab 10/15/18 5/325 (*)] Levothyroxine [Synthroid 112 mcg 112 mcg PO DAILY AT 6AM #30 tab 10/15/18 (*)] Azithromycin [Zithromax] 250 mg PO DAILY #6 tab 12/10/18 Ibuprofen [Motrin] 800 mg PO Q8 #20 tab 12/10/18 Medical Decision Making ED Course/Re-evaluation: CHIEF COMPLAINT: Left-sided headache HISTORY OF PRESENT ILLNESS: The patient is a 62 y/o female complaining of a left-sided headache. She reports there is a "heavy duty sparkly sound" that feels like a "sledge hammer" when she touches it. She then states, "when I press on my ears I feel air". She then states "there is something in the back of my neck that is moving". No headache, chest pain, shortness of breath, abdominal pain, urinary or bowel complaints, numbness, paresthesias. REVIEW OF SYSTEMS: A comprehensive 10 system review of systems is otherwise negative aside from elements mentioned in the history of present illness and medical decision making. PHYSICAL EXAM: HR, BP, O2 Sat, RR. Temp noted General Appearance: Alert, well hydrated, appropriate, and non-toxic appearing. Head: Maxillary sinusitis. Atraumatic without scalp tenderness or obvious injury Eyes: Pupils equal, round, reactive to light and accommodation, EOMI, no trauma , no injection. Ears: Bilateral fluid behind TM. No perforation, normal landmarks Nose: Atraumatic, no rhinorrhea, clear. Throat: There is no erythema or exudates, no lesions, normal tonsils, mucus membranes moist. Neck: Supple, 2+ carotid upstroke, nontender, no lymphadenopathy. Respiratory: No retractions, no distress, no wheezes, and no accessory muscle use. Lungs are clear to auscultation bilaterally. Cardiovascular: Regular rate and rhythm, no murmurs, rubs, or gallops. Bilateral carotid, radial, dorsalis pedis, and posterior tibial pulses intact. Good capillary refill all extremities. Gastrointestinal: Abdomen is soft, nontender, non-distended, no masses, no rebound, no guarding, no peritoneal signs. Musculoskeletal: Normal active ROM of all extremities, atraumatic. Neurological: Alert, appropriate, and interactive. The patient has normal DTRs and non-focal cranial nerves, motor, sensory, and cerebellar exam. Skin: No rashes, good turgor, no nodules on palpation. Past medical history: Thyroid disease, degenerative disc disease, vertigo, , essential tremor, TMJ, hypertension, depression, chronic sinusitis Past surgical history: , tonsillectomy Family history: Denies Social history: Lives in [place], single, not employed DIAGNOSTICS/PROCEDURES/CRITICAL CARE TIME: Not indicated. DIFFERENTIAL DIAGNOSIS: The differential diagnosis for the patient's headache included but was not limited to subarachnoid hemorrhage, migraine headache, tension headache and infectious causes such as meningitis, pharyngitis and sinusitis. MEDICAL DECISION MAKING: The patient is a 62 y/o female presenting with a left-sided headache. She reports there is a "heavy duty sparkly sound" that feels like a "sledge hammer" when she touches it. She then states, "when I press on my ears I feel air". On exam she has maxillary sinusitis and fluid behind both TM's. I have prescribed her Zithromax and Motrin. Her first dose of these medications were given prior to discharge. I have also administered 6mg PO Decadron. I have advised her to follow up with an ENT. Return precautions provided; patient is comfortable with this plan. Departure - Departure Disposition: Home, Routine, Self-Care Clinical Impression: Sinusitis Qualifiers: Sinusitis location: maxillary Chronicity: acute Recurrence: non-recurrent Qualified Code(s): J01.00 - Acute maxillary sinusitis, unspecified Condition: Good Instructions: Sinusitis (ED) Additional Instructions: 1. Take the z-pack as prescribed. 2. Take Motrin as prescribed. 3. Buy and use Flonase and Mucinex. 4. Follow-up with your primary care physician or an ENT within 72 hours. 5. Return to the emergency department immediately for headache, nausea, vomiting , numbness, weakness, neck pain, fever or other concerns. Referrals: EDITH [facility]OLINA [Primary Care Provider] - As per Instructions Coco Gerarod MD [Medical Doctor] - As per Instructions Prescriptions: Azithromycin [Zithromax] 250 mg PO DAILY #6 tab Ibuprofen [Motrin] 800 mg PO Q8 #20 tab Report Scribed for: Saad Santacruz Report Scribed by: Deja Kirby Date of Report: 12/10/18 Time of Report: 20:20
[2018-12-10] MEDS ORDERED: AZITHROMYCIN 250 MG TAB PO ONE (20:27)
[2018-12-10] MEDS ORDERED: IBUPROFEN 800 MG TAB PO ONE (20:27)
[2018-12-10] MEDS ORDERED: DEXAMETHASONE 10 MG/ML VIAL PO ONE (20:32)
[2018-12-10] MEDS ORDERED: DEXAMETHASONE 4 MG TAB ONE (20:36)
== END 2018-12-10 20:44 | disposition home or self-care (01) ==
DX: J01.00 Acute maxillary sinusitis, unspecified (principal); Z87.891 Personal history of nicotine dependence

== ENCOUNTER 2018-12-29 17:33 | Emergency (ER) | payer MEDICAID | END 2018-12-29 18:20 | disposition home or self-care (01) ==

== ENCOUNTER 2019-01-15 15:03 | Emergency (ER) | payer MEDICAID | END 2019-01-15 15:57 | disposition home or self-care (01) ==

== ENCOUNTER 2019-01-22 13:11 | Emergency (ER) | payer MEDICAID | END 2019-01-22 14:42 | disposition home or self-care (01) ==